=== PATIENT | female | born 1955 | race Caucasian/White ===

== ENCOUNTER 2020-03-29 14:20 | Inpatient (IN) | payer MEDICARE, BC, SELFPAY ==
[2020-03-29 14:59] VITALS: PULSE 64; RESP 18; O2SAT 94; BMI 25.2
--- NOTE | 2020-03-29 15:19 | HP.PCM_ITS ---
Problem List (1) Debility Status: Acute (2) Fall Status: Acute (3) Closed left hip fracture Status: Acute (4) Pelvic fracture Status: Acute (5) Ventral hernia Status: Chronic (6) Abdominal aortic aneurysm (AAA) 3.0 cm to 5.0 cm in diameter in female Status: Chronic (7) Hypertension Status: Chronic (8) Depression Status: Chronic (9) Anxiety Status: Chronic (10) Schizoaffective disorder Status: Chronic (11) Cellulitis of left lower extremity Status: Acute History of Present Illness Date of Admission: 03/29/20 Chief Complaint: Here for rehabilitation, strengthening, prior to discharge home alone. 03/24/20 The patient is a 64 year old Female with below past medical history admitted to [facility] with left hip fracture. Fell 1 week prior, very little pain, kept walking with rollator. Pain increased, unable to walk. Diagnosed with left hip fracture, pelvic fracture. Pain control, Toe touch weight bearing left lower extremity. Fractures managed conservatively, no surgical intervention. 03/29/20 Admit to TCU with debility, here for rehabilitation, strengthening, prior to discharge home alone. Past Medical History Past Medical History (Chronic Problems): Chronic Problems Ventral hernia (Chronic) Abdominal aortic aneurysm (AAA) 3.0 cm to 5.0 cm in diameter in female (Chronic) Hypertension (Chronic) Depression (Chronic) Anxiety (Chronic) Schizoaffective disorder (Chronic) Home Medications: Ambulatory Orders Medication Instructions Recorded Amlodipine [Norvasc] 5 mg PO DAILY 03/29/20 Baclofen 10 mg PO BID 03/29/20 Benztropine [Cogentin] 1 mg PO BID 03/29/20 Docusate Sodium [Colace] 100 mg PO BID 03/29/20 Enoxaparin [Lovenox] 40 mg SC DAILY@0600 03/29/20 Folic Acid 1 mg PO DAILY 03/29/20 Furosemide [Lasix] 20 mg PO QHS 03/29/20 Furosemide [Lasix] 40 mg PO DAILY@0600 03/29/20 Gabapentin [Neurontin] 100 mg PO TID 03/29/20 Lisinopril 20 mg PO DAILY 03/29/20 Loxapine Succinate [Loxapine] 50 mg PO BID 03/29/20 Oxycodone HCl/Acetaminophen 1 ea PO Q6H PRN PRN 03/29/20 [Oxycodone-Acetaminophen 5-325] Quetiapine Fumarate 200 mg PO QHS 03/29/20 Venlafaxine HCl [Venlafaxine HCl 150 mg PO DAILY 03/29/20 ER] Surgical History: cholecystectomy, herniorrhaphy, total knee arthroplasty - Left. Psychiatric History: Anxiety, Depression, Schizophrenia PUBLIC AFFAIRS MANAGER History: No pertinent PUBLIC AFFAIRS MANAGER history Lives: With Family - Sister Sachi. Smoking Status: Light Smoker (<10/day) Tobacco Use: Cigarettes Alcohol: Occasional Drugs: None - *Family History Maternal History Items: No pertinent history Paternal History Items: No pertinent history Review of Systems Constitutional: Denies: Chills, Fever, Weight Change HEENT: Denies: Head Aches, Sinus Congestion, Sinus Drainage Cardiovascular: Denies: Chest Pain, Palpitations Respiratory: Denies: Cough, Shortness of breath at rest, Sputum production Gastrointestinal: Denies: Abdominal Pain, Nausea, Vomiting Genitourinary: Denies: Dysuria Musculoskeletal: Denies: Joint Pain, Joint Tenderness Skin: Denies: Rash, Wounds Neurological: Denies: Numbness, Tingling, Focal weakness Psychiatric: Denies: Anxiety, Depression, Homicidal Ideations, Suicidal Ideations Hematologic/ Lymphatic: Denies: Easy Bruising, Easy Bleeding VTE Information - Inpt Only VTE Present on Admission: No VTE Mechan Device Prophylaxis: Knee High ZORAN Hose VTE Pharm Prophylaxis ordered?: Yes Patient Problems: Active and Suspected Problems Debility (Acute) Fall (Acute) Closed left hip fracture (Acute) Pelvic fracture (Acute) Cellulitis of left lower extremity (Acute) - Physical Exam Vitals/I&O's: Weight: 69.853 kg Body Mass Index (BMI) 25.2 General: Alert, Oriented x3, Cooperative HEENT: Atraumatic, PERRLA, EOMI, Normocephalic Neck: Supple, No JVD, Negative Carotid Bruits Lungs: Clear to auscultation, Normal air movement Cardiovascular: Regular rate, No murmurs Abdomen: Bowel Sounds Present, Soft, Non Tender Extremities: No edema, Capillary Refill Less than 3 Seconds Skin: No rashes, No breakdown Musculoskeletal: No Tenderness to Palpation of Joints or Extremities Neurological: Cranial nerves II-XII grossly intact Psych/Mental Status: Normal Affect, Appropriate Assessment/Plan All Active Problems Debility (Acute) Fall (Acute) Closed left hip fracture (Acute) Pelvic fracture (Acute) Cellulitis of left lower extremity (Acute) 64 year old female with below past medical history hospitalized for left hip fracture, pelvic fracture, managed conservatively, no surgical intervention, admitted to TCU with debility, here for rehabilitation, strengthening, prior to discharge home alone. * Debility - PT/OT. * Pain - Tylenol 1000MG Q6H PRN pain (1-5), Oxycodone 5MG Q6H PRN pain (6-10). * Bowel - Miralax 17GM daily, Senna/colace 2 tablets BID, MOM 30ML daily PRN, Dulcolax 10MG VT daily PRN. * Adult immunization - Administer Prevnar 13, Pneumovax 23, Fluzone as appropriate. * DVT prophylaxis - Lovenox 40MG SC daily. * Hypertension - Lisinopril 20MG daily, Amlodipine 5MG daily. * Muscle spasm - Baclofen 10MG TID. * Extrapyramidal symptom prophylaxis - Benztropine 1MG BID. * Folate deficiency - Folic Acid 1MG daily, * Edema - Lasix 40MG QAM, 20MG QPM. * Neuropathy - Gabapentin 100MG TID. * Schizoaffective disorder - Seroquel 200MG QHS, stable chronic termite exterminator helper use, GDR not recommended. * Depression - Venlafaxine 150MG daily.
[2020-03-29 15:30] VITALS: BP 133/85; PULSE 64; RESP 18; TEMP 36.4; O2SAT 94
[2020-03-29 16:00] VITALS: BP 133/85; PULSE 64; RESP 16; TEMP 36.4; O2SAT 94
--- NOTE | 2020-03-29 16:57 | NURSING ---
Addendum entered by Nupur Bacon 03/29/20 18:32: dr enriquez updated, no new orders at this time continue all meds as ordered Original Note: spoke with pt Sachi SALINAS regarding loxapine. Stated that she has not been taking it for 2 months d/t short supply. pt sees a phsych [facility] and she is aware of the shortage.
[2020-03-29] MEDS: oxyCODONE 5 MG Tablet PO (17:03)
[2020-03-29] MEDS: Benztropine 2 MG Tablet 1 MG PO (17:04)
[2020-03-29] MEDS: Docusate Sodium 100 MG Capsule PO (17:09)
[2020-03-29] MEDS: QUEtiapine 100 MG Tablet 200 MG PO (22:13)
[2020-03-29] MEDS: Gabapentin 100 MG Capsule PO (22:13)
[2020-03-29] MEDS: Acetaminophen 500 MG Tablet 1000 MG PO (22:15)
[2020-03-30] MEDS: oxyCODONE 5 MG Tablet PO ×3 (03:50→17:11)
[2020-03-30 05:00] VITALS: BP 136/93; PULSE 76; RESP 16; TEMP 36.6; O2SAT 94
[2020-03-30] MEDS: Venlafaxine XR 150 MG Capsule PO (06:15)
[2020-03-30] MEDS: amLODIPine 5 MG Tablet PO (06:15)
[2020-03-30] MEDS: Furosemide 40 MG Tablet PO (06:15)
[2020-03-30] MEDS: Gabapentin 100 MG Capsule PO ×3 (06:15→21:34)
[2020-03-30] MEDS: Acetaminophen 500 MG Tablet 1000 MG PO ×2 (06:16→16:17)
[2020-03-30] MEDS: Lisinopril 20 MG Tablet PO (06:16)
[2020-03-30] MEDS: Enoxaparin 40 MG/0.4 ML Syringe SC (06:17)
[2020-03-30] MEDS: Benztropine 2 MG Tablet 1 MG PO ×2 (06:20→18:06)
[2020-03-30 06:59] LABS: Absolute Lymphocyte Count 1.52 X10^3/uL (0.83-4.51); Absolute Neutrophil Count 3.4 X10^3/uL (2.0-7.7); Basophil# 0.03 X10^3/uL; Basophil% 0.6 % (0-1); Eosinophil# 0.01 X10^3/uL; Eosinophils% 0.2 % (0-5); Hematocrit 39.3 % (37-47); Hemoglobin 12.8 g/dL (12.0-15.0); Lymphocyte # 1.52 X10^3/ul (4.0); Lymphocyte % 27.9 % (19-41); Mean Corp Hgb Conc 32.6 g/dL (32-36); Mean Corpuscular Hgb 29.4 pg (27.0-32.0); Mean Corpuscular Volume 90.3 fL (81-99); Mean Platelet Vol. 9.8 fl (6.2-12.0); Monocyte# 0.44 X10^3/uL; Monocyte% 8.1 % (0-10); NRBC Flagged by Analyzer 0 % (0-5); Neutrophil # 3.43 X10^3/uL (2.7-7.7); Platelet Count 300 K/mm3 (150-450); RBC Distribution Width CV 12.8 % (11.6-14.6); RBC Distribution Width SD 42.4 fl (35.1-43.9); Red Blood Count 4.35 M/mm3 (4.2-5.4); White Blood Count 5.4 K/mm3 (4.4-11.0)
[2020-03-30 07:23] LABS: Anion Gap 4 (5-15); BUN 15 mg/dL (7-18); BUN/Creat Ratio 22.4 RATIO (10-20); Calcium,Total 8.8 mg/dL (8.5-10.1); Chloride 104 mmol/L (98-107); Creatinine, Serum 0.67 mg/dL (0.55-1.02); EST Glomerular Filtration Rate 94 mL/min (>60); Est Glom Filt Rate - Afr Amer 113 mL/min (>60); Estimated Creatinine Clearance 75.33 ml/min; Glucose 96 mg/dL (74-106); Potassium 3.6 mmol/L (3.5-5.1); Sodium Level 136 mmol/L (136-145)
[2020-03-30] MEDS: Folic Acid 1 MG Tablet PO (07:54)
[2020-03-30] MEDS: Tuberculin,Purif.prot.deriv. 50 TU/ML Vial 5 ML ID (10:36)
[2020-03-30] MEDS: Furosemide 20 MG Tablet PO (13:18)
[2020-03-30 13:40] VITALS: BP 133/77; PULSE 108; RESP 18; TEMP 36.6; O2SAT 94
--- NOTE | 2020-03-30 15:39 | NURSING ---
Pt c/o of baclofen making her drowsy and tired. Dr. Rinaldi made aware D/C'd the baclofen.
[2020-03-30 20:01] VITALS: PULSE 75; RESP 16; O2SAT 94
[2020-03-30] MEDS: QUEtiapine 100 MG Tablet 200 MG PO (21:34)
[2020-03-31 05:00] VITALS: BP 130/71; PULSE 76; RESP 16; TEMP 36.5; O2SAT 94
[2020-03-31] MEDS: Venlafaxine XR 150 MG Capsule PO (06:55)
[2020-03-31] MEDS: Enoxaparin 40 MG/0.4 ML Syringe SC (06:55)
[2020-03-31] MEDS: Lisinopril 20 MG Tablet PO (06:55)
[2020-03-31] MEDS: amLODIPine 5 MG Tablet PO (06:55)
[2020-03-31] MEDS: Gabapentin 100 MG Capsule PO ×3 (06:55→20:49)
[2020-03-31] MEDS: Furosemide 40 MG Tablet PO (06:55)
[2020-03-31] MEDS: Benztropine 2 MG Tablet 1 MG PO ×2 (06:56→17:07)
[2020-03-31] MEDS: oxyCODONE 5 MG Tablet PO ×3 (06:57→20:52)
[2020-03-31] MEDS: Folic Acid 1 MG Tablet PO (08:03)
[2020-03-31 09:21] VITALS: PULSE 104; RESP 16; O2SAT 92
[2020-03-31] MEDS: Furosemide 20 MG Tablet PO (13:48)
[2020-03-31 14:17] VITALS: BP 137/75; PULSE 90; RESP 16; TEMP 36.7; O2SAT 94
[2020-03-31] MEDS: QUEtiapine 100 MG Tablet 200 MG PO (20:50)
[2020-04-01 05:00] VITALS: BP 131/64; PULSE 88; RESP 16; TEMP 36.7; O2SAT 92
[2020-04-01] MEDS: oxyCODONE 5 MG Tablet PO ×3 (05:17→21:27)
[2020-04-01] MEDS: Venlafaxine XR 150 MG Capsule PO (05:25)
[2020-04-01] MEDS: Furosemide 40 MG Tablet PO (05:26)
[2020-04-01] MEDS: Gabapentin 100 MG Capsule PO ×3 (05:27→21:28)
[2020-04-01] MEDS: amLODIPine 5 MG Tablet PO (05:27)
[2020-04-01] MEDS: Lisinopril 20 MG Tablet PO (05:27)
[2020-04-01] MEDS: Enoxaparin 40 MG/0.4 ML Syringe SC (05:30)
[2020-04-01] MEDS: Benztropine 2 MG Tablet 1 MG PO ×2 (05:31→17:22)
[2020-04-01] MEDS: Folic Acid 1 MG Tablet PO (08:16)
[2020-04-01] MEDS: Acetaminophen 500 MG Tablet 1000 MG PO (08:17)
--- NOTE | 2020-04-01 12:01 | CASEMGMT ---
Social Work Discussed patient's code status. Pt confirms full code. MOLST form reviewed, communication given to , placed in chart. Cecy Roper, ROLL FORGER MANAGER STRATEGIC MARKETING
[2020-04-01] MEDS: Furosemide 20 MG Tablet PO (13:03)
[2020-04-01 14:25] VITALS: BP 120/72; PULSE 81; RESP 17; TEMP 36.4; O2SAT 94
[2020-04-01] MEDS: Senna/Docusate Sodium 1 Tablet 2 TABLET PO (17:19)
[2020-04-01] MEDS: QUEtiapine 100 MG Tablet 200 MG PO (21:29)
[2020-04-02] MEDS: Acetaminophen 500 MG Tablet 1000 MG PO ×2 (00:07→07:47)
[2020-04-02] MEDS: oxyCODONE 5 MG Tablet PO ×3 (04:37→21:19)
[2020-04-02] MEDS: Benztropine 2 MG Tablet 1 MG PO ×2 (04:38→17:21)
[2020-04-02] MEDS: amLODIPine 5 MG Tablet PO (04:38)
[2020-04-02] MEDS: Venlafaxine XR 150 MG Capsule PO (04:38)
[2020-04-02] MEDS: Enoxaparin 40 MG/0.4 ML Syringe SC (04:38)
[2020-04-02] MEDS: Lisinopril 20 MG Tablet PO (04:38)
[2020-04-02] MEDS: Furosemide 40 MG Tablet PO (04:38)
[2020-04-02] MEDS: Gabapentin 100 MG Capsule PO ×3 (04:39→21:11)
[2020-04-02 04:54] VITALS: BP 133/54; PULSE 78; RESP 18; TEMP 36.6; O2SAT 93
[2020-04-02] MEDS: Folic Acid 1 MG Tablet PO (07:45)
[2020-04-02 09:50] VITALS: PULSE 90; RESP 18; O2SAT 94
--- NOTE | 2020-04-02 11:34 | NURSING ---
PT BOTTOM RED. REPORTED TO RN AND MIKE ORDERED.
--- NOTE | 2020-04-02 12:50 | PCM.PN.RX ---
<Christophe Foxivon Kerns - Last Filed: 04/02/20 12:50> Progress Note - Pharmacy Subjective: TCU Admission Objective: Allergies azithromycin Allergy (Verified 03/29/20 15:28) PT UNSURE OF REACTION Sulfa (Sulfonamide Antibiotics) Allergy (Verified 03/29/20 15:28) Hives olanzapine [From Zyprexa] Adverse Reaction (Verified 03/29/20 17:03) Shortness of breath Current Medications Generic Name Dose Route Start Last Admin Trade Name Freq PRN Reason Stop Dose Admin Acetaminophen 1,000 mg 03/29/20 18:57 04/02/20 07:47 Acetaminophen 500 Mg Tablet PO 1,000 mg Q6H PRN Administration Pain Score 1-10 Amlodipine Besylate 5 mg 03/30/20 06:00 04/02/20 04:38 Amlodipine 5 Mg Tablet PO 5 mg DAILY FRANKO Administration Benztropine Mesylate 1 mg 03/29/20 18:00 04/02/20 04:38 Benztropine 2 Mg Tablet PO 1 mg BID FRANKO Administration Bisacodyl 10 mg 03/29/20 18:58 Bisacodyl 10 Mg Suppository RECTAL DAILY PRN Constipation Calamine/Phenol 1 applic 04/02/20 18:00 Menthol/Lanolin/Calamine/Znox 113 Gm Tube TOPICAL BID [facility] Protocol Enoxaparin Sodium 40 mg 03/30/20 06:00 04/02/20 04:38 Enoxaparin 40 Mg/0.4 Ml Syringe SC 40 mg DAILY@0600 FRANKO Administration Folic Acid 1 mg 03/30/20 08:00 04/02/20 07:45 Folic Acid 1 Mg Tablet PO 1 mg DAILYCM FRANKO Administration Furosemide 40 mg 03/30/20 06:00 04/02/20 04:38 Furosemide 40 Mg Tablet PO 40 mg DAILY@0600 FRANKO Administration Furosemide 20 mg 03/30/20 13:00 04/01/20 13:03 Furosemide 20 Mg Tablet PO 20 mg 1300 FRANKO Administration Gabapentin 100 mg 03/29/20 22:00 04/02/20 04:39 Gabapentin 100 Mg Capsule PO 100 mg TID FRANKO Administration Lisinopril 20 mg 03/30/20 06:00 04/02/20 04:38 Lisinopril 20 Mg Tablet PO 20 mg DAILY FRANKO Administration Magnesium Hydroxide 30 ml 03/29/20 18:58 Magnesium Hydroxide 30 Ml Udc PO DAILY PRN Constipation Oxycodone HCl 5 mg 03/29/20 16:12 04/02/20 04:37 Oxycodone 5 Mg Tablet PO 5 mg Q6H PRN PRN Administration Pain Score 6-10 Polyethylene Glycol 17 gm 03/30/20 06:00 04/02/20 04:39 Polyethylene Glycol 3350 17 Gm Packet PO Not Given DAILY FRANKO Quetiapine Fumarate 200 mg 03/29/20 22:00 04/01/20 21:29 Quetiapine 100 Mg Tablet PO 200 mg QHS FRANKO Administration Senna/Docusate Sodium 2 tablet 03/30/20 06:00 04/02/20 04:39 Senna/Docusate Sodium 1 Tablet PO Not Given BID [facility] Tuberculin PPD 5 tu 04/06/20 10:00 Tuberculin,Purif.Prot.Deriv. 50 Tu/Ml Vial ID 04/06/20 10:01 X1 ONE Venlafaxine HCl 150 mg 03/30/20 06:00 04/02/20 04:38 Venlafaxine Xr 150 Mg Capsule PO 150 mg DAILY FRANKO Administration Problem List Debility (Acute) Fall (Acute) Closed left hip fracture (Acute) Pelvic fracture (Acute) Ventral hernia (Chronic) Abdominal aortic aneurysm (AAA) 3.0 cm to 5.0 cm in diameter in female (Chronic) Hypertension (Chronic) Depression (Chronic) Anxiety (Chronic) Schizoaffective disorder (Chronic) Cellulitis of left lower extremity (Acute) Vital Signs Temp Pulse Resp BP Pulse Ox 97.8 F 78 18 133/54 H 93 04/02/20 04:54 04/02/20 04:54 04/02/20 04:54 04/02/20 04:54 04/02/20 04:54 Oxygen Delivery Method Room Air Weight: 64.949 kg Body Mass Index (BMI) 25.2 Sodium 136 mmol/L (136-145) 03/30/20 06:05 Potassium 3.6 mmol/L (3.5-5.1) 03/30/20 06:05 Chloride 104 mmol/L (98-107) 03/30/20 06:05 Carbon Dioxide 28.0 mmol/L (21.0-32.0) 03/30/20 06:05 Anion Gap 4 (5-15) L 03/30/20 06:05 BUN 15 mg/dL (7-18) 03/30/20 06:05 Creatinine 0.67 mg/dL (0.55-1.02) 03/30/20 06:05 Est GFR (MDRD) Af Amer 113 mL/min (>60) 03/30/20 06:05 Est GFR (MDRD) Non-Af 94 mL/min (>60) 03/30/20 06:05 BUN/Creatinine Ratio 22.4 RATIO (10-20) H 03/30/20 06:05 Glucose 96 mg/dL (74-106) 03/30/20 06:05 Assessment/Plan: 1) Pain APAP for pain 1-10, oxycodone for pain 6-10, gabapentin. Continue to monitor prn medication use, daily pain scores. 2) HTN/Edema Lisinopril, amlodipine, furosemide. Continue to monitor BP/HR, renal function, electrolytes. 3) Nutrition Folic Acid. Continue to monitor clinically. 4) DVT PPx Enoxaparin. Continue to monitor renal function, s/s bleeding/clot. Psychotropic Medications: 5) Depression Venlafaxine XR. Continue to monitor s/s depression. 6) Schizoaffective Disorder Quetiapine, benztropine. Stable chronic senior living use, GDR not recommended. Unnecessary Medications: None Bowel Regimen: 7) Senna/s, PEG, MgOH, prn bisacodyl. Continue to monitor prn medication use, for constipation/diarrhea. Date of Note:: 04/02/20 - Provider Comments Provider responsibility: Provider responsible to enter orders to implement recommendations <Yao Rinaldi Chi - Last Filed: 04/02/20 14:21> Progress Note - Pharmacy Subjective: [] Objective: Allergies azithromycin Allergy (Verified 03/29/20 15:28) PT UNSURE OF REACTION Sulfa (Sulfonamide Antibiotics) Allergy (Verified 03/29/20 15:28) Hives olanzapine [From Zyprexa] Adverse Reaction (Verified 03/29/20 17:03) Shortness of breath Current Medications Generic Name Dose Route Start Last Admin Trade Name Freq PRN Reason Stop Dose Admin Acetaminophen 1,000 mg 03/29/20 18:57 04/02/20 07:47 Acetaminophen 500 Mg Tablet PO 1,000 mg Q6H PRN Administration Pain Score 1-10 Amlodipine Besylate 5 mg 03/30/20 06:00 04/02/20 04:38 Amlodipine 5 Mg Tablet PO 5 mg DAILY FRANKO Administration Benztropine Mesylate 1 mg 03/29/20 18:00 04/02/20 04:38 Benztropine 2 Mg Tablet PO 1 mg BID [facility] Administration Bisacodyl 10 mg 03/29/20 18:58 Bisacodyl 10 Mg Suppository RECTAL DAILY PRN Constipation Calamine/Phenol 1 applic 04/02/20 18:00 Menthol/Lanolin/Calamine/Znox 113 Gm Tube TOPICAL BID [facility] Protocol Enoxaparin Sodium 40 mg 03/30/20 06:00 04/02/20 04:38 Enoxaparin 40 Mg/0.4 Ml Syringe SC 40 mg DAILY@0600 [facility] Administration Folic Acid 1 mg 03/30/20 08:00 04/02/20 07:45 Folic Acid 1 Mg Tablet PO 1 mg DAILYCM [facility] Administration Furosemide 40 mg 03/30/20 06:00 04/02/20 04:38 Furosemide 40 Mg Tablet PO 40 mg DAILY@0600 [facility] Administration Furosemide 20 mg 03/30/20 13:00 04/02/20 13:05 Furosemide 20 Mg Tablet PO 20 mg 1300 [facility] Administration Gabapentin 100 mg 03/29/20 22:00 04/02/20 13:05 Gabapentin 100 Mg Capsule PO 100 mg TID [facility] Administration Lisinopril 20 mg 03/30/20 06:00 04/02/20 04:38 Lisinopril 20 Mg Tablet PO 20 mg DAILY [facility] Administration Magnesium Hydroxide 30 ml 03/29/20 18:58 Magnesium Hydroxide 30 Ml Udc PO DAILY PRN Constipation Oxycodone HCl 5 mg 03/29/20 16:12 04/02/20 13:06 Oxycodone 5 Mg Tablet PO 5 mg Q6H PRN PRN Administration Pain Score 6-10 Polyethylene Glycol 17 gm 03/30/20 06:00 04/02/20 04:39 Polyethylene Glycol 3350 17 Gm Packet PO Not Given DAILY [facility] Quetiapine Fumarate 200 mg 03/29/20 22:00 04/01/20 21:29 Quetiapine 100 Mg Tablet PO 200 mg QHS [facility] Administration Senna/Docusate Sodium 2 tablet 03/30/20 06:00 04/02/20 04:39 Senna/Docusate Sodium 1 Tablet PO Not Given BID [facility] Tuberculin PPD 5 tu 04/06/20 10:00 Tuberculin,Purif.Prot.Deriv. 50 Tu/Ml Vial ID 04/06/20 10:01 X1 ONE Venlafaxine HCl 150 mg 03/30/20 06:00 04/02/20 04:38 Venlafaxine Xr 150 Mg Capsule PO 150 mg DAILY FRANKO Administration Problem List Debility (Acute) Fall (Acute) Closed left hip fracture (Acute) Pelvic fracture (Acute) Ventral hernia (Chronic) Abdominal aortic aneurysm (AAA) 3.0 cm to 5.0 cm in diameter in female (Chronic) Hypertension (Chronic) Depression (Chronic) Anxiety (Chronic) Schizoaffective disorder (Chronic) Cellulitis of left lower extremity (Acute) Vital Signs Temp Pulse Resp BP Pulse Ox 97.8 F 78 18 133/54 H 93 04/02/20 04:54 04/02/20 04:54 04/02/20 04:54 04/02/20 04:54 04/02/20 04:54 Oxygen Delivery Method Room Air Weight: 64.949 kg Body Mass Index (BMI) 25.2 Sodium 136 mmol/L (136-145) 03/30/20 06:05 Potassium 3.6 mmol/L (3.5-5.1) 03/30/20 06:05 Chloride 104 mmol/L (98-107) 03/30/20 06:05 Carbon Dioxide 28.0 mmol/L (21.0-32.0) 03/30/20 06:05 Anion Gap 4 (5-15) L 03/30/20 06:05 BUN 15 mg/dL (7-18) 03/30/20 06:05 Creatinine 0.67 mg/dL (0.55-1.02) 03/30/20 06:05 Est GFR (MDRD) Af Amer 113 mL/min (>60) 03/30/20 06:05 Est GFR (MDRD) Non-Af 94 mL/min (>60) 03/30/20 06:05 BUN/Creatinine Ratio 22.4 RATIO (10-20) H 03/30/20 06:05 Glucose 96 mg/dL (74-106) 03/30/20 06:05 Assessment/Plan: Psychotropic Medications: Unnecessary Medications: Bowel Regimen: - Provider Comments Provider responsibility: Provider responsible to enter orders to implement recommendations Provider Comments to Recommendations by Pharmacy: Agree
[2020-04-02] MEDS: Furosemide 20 MG Tablet PO (13:05)
[2020-04-02 14:47] VITALS: BP 131/73; PULSE 92; RESP 16; TEMP 36; O2SAT 94
[2020-04-02] MEDS: Menthol/Lanolin/Calamine/Znox 113 GM Tube 1 APPLIC TOPICAL (17:13)
[2020-04-02] MEDS: QUEtiapine 100 MG Tablet 200 MG PO (21:12)
[2020-04-03] MEDS: Menthol/Lanolin/Calamine/Znox 113 GM Tube 1 APPLIC TOPICAL ×2 (06:54→17:33)
[2020-04-03] MEDS: Benztropine 2 MG Tablet 1 MG PO ×2 (06:55→17:34)
[2020-04-03] MEDS: Venlafaxine XR 150 MG Capsule PO (06:56)
[2020-04-03] MEDS: Enoxaparin 40 MG/0.4 ML Syringe SC (06:57)
[2020-04-03] MEDS: Furosemide 40 MG Tablet PO (06:57)
[2020-04-03] MEDS: amLODIPine 5 MG Tablet PO (06:58)
[2020-04-03] MEDS: Gabapentin 100 MG Capsule PO ×3 (06:58→23:12)
[2020-04-03] MEDS: Lisinopril 20 MG Tablet PO (06:58)
[2020-04-03] MEDS: Folic Acid 1 MG Tablet PO (07:01)
[2020-04-03 07:10] VITALS: BP 135/73; PULSE 90; RESP 18; TEMP 36.6; O2SAT 95
[2020-04-03] MEDS: oxyCODONE 5 MG Tablet PO (09:00)
--- NOTE | 2020-04-03 12:41 | CASEMGMT ---
Social Work IDT met with patient and sister via conference call for care plan meeting. Discussed patient's progress in therapy. Pt is mod for bed mobility, min for tx,. Pt is TTWB on LLE and needs cues maintaining. Pt is using 2# wts on RLE. Pt is min for UE ADLS, max for LE ADLs, mod for toilet tx, max for toileting tasks. Pt having issues with balance. Pt is on a regular diet, intake variable, denies wanting any supplements. Pt is out of isolation 04/12, and has new cath. Explained Medicare benefit. Pt does not have secondary insurance on file and explained privately pay for copays. Sister stated she does have [place] as secondary insurance because they cannot pay privately. Sister to provide SW with insurance card to put on file and ensure is active. Sister did stated pt needs to return to [facility] to return home as she cannot take care of her physically. Inquired about getting a ramp built as pt has 7 steps to enter. Sister stated her dtr lives with them and is handicap as well so they are working on getting a ramp. SW offered resources if needed. Will continue to follow. Cecy Roper, CONSTANZA HVAC SPECIALIST
[2020-04-03] MEDS: Furosemide 20 MG Tablet PO (14:13)
[2020-04-03 14:21] VITALS: BP 137/78; PULSE 73; RESP 16; TEMP 36.3; O2SAT 93
[2020-04-03] MEDS: Senna/Docusate Sodium 1 Tablet 2 TABLET PO (17:33)
[2020-04-03] MEDS: oxyCODONE 5 MG Tablet 10 MG PO (17:36)
[2020-04-03] MEDS: QUEtiapine 100 MG Tablet 200 MG PO (23:12)
[2020-04-03 23:29] VITALS: PULSE 84; RESP 18; O2SAT 95
[2020-04-04 05:00] VITALS: BP 136/49; PULSE 104; RESP 16; TEMP 37.7; O2SAT 94
[2020-04-04] MEDS: Menthol/Lanolin/Calamine/Znox 113 GM Tube 1 APPLIC TOPICAL ×2 (05:56→17:07)
[2020-04-04] MEDS: Venlafaxine XR 150 MG Capsule PO (05:58)
[2020-04-04] MEDS: Furosemide 40 MG Tablet PO (05:59)
[2020-04-04] MEDS: Benztropine 2 MG Tablet 1 MG PO ×2 (05:59→17:09)
[2020-04-04] MEDS: Polyethylene Glycol 3350 17 GM PACKET PO (06:00)
[2020-04-04] MEDS: Enoxaparin 40 MG/0.4 ML Syringe SC (06:00)
[2020-04-04] MEDS: amLODIPine 5 MG Tablet PO (06:01)
[2020-04-04] MEDS: Senna/Docusate Sodium 1 Tablet 2 TABLET PO ×2 (06:01→17:09)
[2020-04-04] MEDS: Lisinopril 20 MG Tablet PO (06:01)
[2020-04-04] MEDS: Gabapentin 100 MG Capsule PO ×3 (06:01→21:39)
[2020-04-04] MEDS: Folic Acid 1 MG Tablet PO (08:00)
[2020-04-04] MEDS: oxyCODONE 5 MG Tablet 10 MG PO ×2 (08:02→21:37)
[2020-04-04 10:00] VITALS: PULSE 94; RESP 18; O2SAT 94
--- NOTE | 2020-04-04 11:37 | MDS.RN ---
Pain interview for [facility] 04/05/20 completed.
[2020-04-04] MEDS: Furosemide 20 MG Tablet PO (14:17)
[2020-04-04 15:17] VITALS: BP 148/66; PULSE 80; RESP 16; TEMP 36.8; O2SAT 94
--- NOTE | 2020-04-04 17:01 | NURSING ---
PT STATED SHE UPDATES FAMILY
[2020-04-04] MEDS: QUEtiapine 100 MG Tablet 200 MG PO (21:38)
[2020-04-05] MEDS: Enoxaparin 40 MG/0.4 ML Syringe SC (04:14)
[2020-04-05] MEDS: Acetaminophen 500 MG Tablet 1000 MG PO (04:14)
[2020-04-05] MEDS: Venlafaxine XR 150 MG Capsule PO (04:15)
[2020-04-05] MEDS: Benztropine 2 MG Tablet 1 MG PO ×2 (04:15→17:10)
[2020-04-05] MEDS: amLODIPine 5 MG Tablet PO (04:15)
[2020-04-05] MEDS: Senna/Docusate Sodium 1 Tablet 2 TABLET PO ×2 (04:15→17:10)
[2020-04-05] MEDS: Furosemide 40 MG Tablet PO (04:15)
[2020-04-05] MEDS: Polyethylene Glycol 3350 17 GM PACKET PO (04:16)
[2020-04-05] MEDS: Lisinopril 20 MG Tablet PO (04:16)
[2020-04-05] MEDS: Gabapentin 100 MG Capsule PO ×3 (04:16→20:51)
[2020-04-05] MEDS: Menthol/Lanolin/Calamine/Znox 113 GM Tube 1 APPLIC TOPICAL ×2 (04:18→17:09)
[2020-04-05 04:21] VITALS: BP 119/74; PULSE 98; RESP 18; TEMP 38.4; O2SAT 94
[2020-04-05 07:43] VITALS: TEMP 37.3
[2020-04-05] MEDS: Folic Acid 1 MG Tablet PO (08:31)
--- NOTE | 2020-04-05 10:20 | PCM.PN.BLA ---
Progress Note By nursing to see this patient for a fever of 101.2 ?F at 421 this AM. She is a 64 YOF admitted with hip and pelvic fractures on 03/29/2020. She had no surgery. Temp this a.m. is 99.2 but she received Tylenol Vital signs are stable. She is 94% on room air. She tells me she has a cough and she thinks it is productive but she swallows. She is a smoker but, she is down to 3 cigarettes a day and she hasn't smoked since being admitted to the hospital. She has used an inhaler in the past for wheezing and it helped. She denies dyspnea at rest. She denies dysuria, lightheadedness, chest pain, abdominal pain, nausea/vomiting, diarrhea, loss of taste or loss of smell. She denies sore throat, rhinitis, nasal congestion and headache. Rapid antigen for Covid on 04/01/2020 was negative. Alert and appropriate. Sitting in the recliner at the bedside and is in no apparent distress. MM are dry Lungs - diminished. Coarse rhonchi and crackles in the L upper lung posteriorly that did not clear after coughing. R lung is CTA HRRR with an occasional ectopic, no gallop abd - soft, NT, ND, BS's present no peripheral edema, no calf tenderness Urine in the thomason bag is clear but appears mildly concentrated No erythema of the skin. Reportedly had cellulitis of the LLE at admission to TCU. She was not on an antibiotic at presentation to TCU. There is no documentation on physical exam of cellulitis. Impressions 1. New fever associated with cough. She also has a thomason catheter so can not r/o UTI at this time. Not sure why she has a Thomason.......will discuss with nursing. 2. Pelvic and L hip fractures due to a fall - no surgical intervention 3. tobacco dependence 4. schizoaffective disorder UA CBC with diff COVID RA BMP CXR now Results of above will determine plan for tx. will review the results when available STROKE Vital Signs/Narrative: Vital Signs Temp 04/05/20 07:43 99.2 F H Inpatient E&M: [id number] Subs Hosp L2
--- NOTE | 2020-04-05 10:31 | RAD_ITS ---
STUDY: X-RAY CHEST REASON FOR EXAM: Female, 64 years old. FEVER -- DENIES ANY SOB OR COUGH TECHNIQUE: Single AP portable view of the chest. COMPARISON: None. FINDINGS: The lungs are clear and expanded. There is no demonstrated pleural abnormality. Normal size heart. Normal mediastinum and basil. Normal visualized pulmonary arteries. Normal visualized aortic arch and descending thoracic aorta. Normal visualized thoracic spine. Normal visualized ribs, clavicles, and shoulders. There is no demonstrated abnormality of the visualized soft tissue structures of the upper abdomen. RAD/Chest 1 View (Portable) IMPRESSION: Normal x-ray examination of the chest. Electronically Signed: Bobby Michel DO at 11:13 EST Tel , Service support ,
[2020-04-05 10:57] LABS: Absolute Lymphocyte Count 1.26 X10^3/uL (0.83-4.51); Absolute Neutrophil Count 3.1 X10^3/uL (2.0-7.7); Basophil# 0.01 X10^3/uL; Basophil% 0.2 % (0-1); Hematocrit 39.2 % (37-47); Hemoglobin 13.1 g/dL (12.0-15.0); Lymphocyte # 1.26 X10^3/ul (4.0); Lymphocyte % 25.5 % (19-41); Mean Corp Hgb Conc 33.4 g/dL (32-36); Mean Corpuscular Hgb 29.2 pg (27.0-32.0); Mean Corpuscular Volume 87.5 fL (81-99); Mean Platelet Vol. 9.8 fl (6.2-12.0); Monocyte% 12.1 % (0-10); NRBC Flagged by Analyzer 0 % (0-5); Neutrophil # 3.05 X10^3/uL (2.7-7.7); Neutrophil % 61.8 % (47-70); Platelet Count 340 K/mm3 (150-450); RBC Distribution Width CV 12.3 % (11.6-14.6); RBC Distribution Width SD 39.7 fl (35.1-43.9); Red Blood Count 4.48 M/mm3 (4.2-5.4); White Blood Count 4.9 K/mm3 (4.4-11.0)
[2020-04-05 11:06] LABS: Anion Gap 8 (5-15); BUN 18 mg/dL (7-18); BUN/Creat Ratio 22.4 RATIO (10-20); Calcium,Total 8.5 mg/dL (8.5-10.1); Chloride 92 mmol/L (98-107); EST Glomerular Filtration Rate 76 mL/min (>60); Est Glom Filt Rate - Afr Amer 92 mL/min (>60); Estimated Creatinine Clearance 63.09 ml/min; Glucose 94 mg/dL (74-106); Potassium 3.9 mmol/L (3.5-5.1); Sodium Level 124 mmol/L (136-145)
[2020-04-05] MEDS: oxyCODONE 5 MG Tablet 10 MG PO ×2 (14:40→20:54)
[2020-04-05] MEDS: 0.9% Normal Saline 1,000 ML 100 ML IV (14:54)
[2020-04-05 14:56] VITALS: BP 107/70; PULSE 75; RESP 18; TEMP 36.4; O2SAT 96
--- NOTE | 2020-04-05 16:22 | NURSING ---
Addendum entered by Jumana Whittington 04/05/20 17:08: lab stated they had received lab specimen and will process it now Original Note: Lab called regarding UA results. They will look into it and call us back if they do not have the specimen. Also CPS called to collect Covid swab.
[2020-04-05 16:24] LABS: Mucous, Urine 0 SEEN /hpf (<or=2+); Squamous Epithelial Cells - UA 0 SEEN /hpf (5-10)
[2020-04-05 16:44] LABS: Color, Urine Yellow (Yellow); Glucose, Dipstick Normal (Normal); Ketone-Dipstick Negative (Negative); Leukocyte Esterase-Dipstick 25 /ul (Negative); Nitrite-Dipstick Negative (Negative); Occult Blood-Urine 250 /ul (Negative); Protein-Dipstick 100 mg/dl (Negative); Urine Bilirubin Dipstick Negative (Negative); Urine Clarity Sl. Cloudy (Clear); Urine Urobilinogen Normal (Normal)
[2020-04-05 16:48] LABS: Bacteria 4+ /hpf (None Seen); Red Blood Cells-Urine 25-50 SEEN /hpf (0-5); White Blood Cells 0-5 SEEN /hpf (0-5)
[2020-04-05] MEDS: Ceftriaxone 1 GM/50 ML BAG IV (20:43)
[2020-04-05] MEDS: QUEtiapine 100 MG Tablet 200 MG PO (20:50)
--- NOTE | 2020-04-05 21:00 | NURSING ---
Dr Mackenzie notified of UA results, new orders obtained, this nurse called lab and they have urine for culture to be done,
[2020-04-06] MEDS: 0.9% Normal Saline 1,000 ML 100 ML IV ×2 (01:25→11:30)
[2020-04-06 04:19] VITALS: BP 117/63; PULSE 82; RESP 18; TEMP 37; O2SAT 92
[2020-04-06] MEDS: Enoxaparin 40 MG/0.4 ML Syringe SC (04:22)
[2020-04-06] MEDS: Benztropine 2 MG Tablet 1 MG PO ×2 (04:23→17:46)
[2020-04-06] MEDS: Polyethylene Glycol 3350 17 GM PACKET PO (04:23)
[2020-04-06] MEDS: Senna/Docusate Sodium 1 Tablet 2 TABLET PO (04:23)
[2020-04-06] MEDS: Venlafaxine XR 150 MG Capsule PO (04:23)
[2020-04-06] MEDS: amLODIPine 5 MG Tablet PO (04:23)
[2020-04-06] MEDS: Gabapentin 100 MG Capsule PO ×3 (04:23→22:48)
[2020-04-06] MEDS: Lisinopril 20 MG Tablet PO (04:23)
[2020-04-06] MEDS: oxyCODONE 5 MG Tablet 10 MG PO ×3 (04:27→22:47)
[2020-04-06] MEDS: Menthol/Lanolin/Calamine/Znox 113 GM Tube 1 APPLIC TOPICAL ×2 (04:28→17:48)
[2020-04-06 06:20] LABS: Absolute Neutrophil Count 3.9 X10^3/uL (2.0-7.7); Basophil# 0.01 X10^3/uL; Basophil% 0.2 % (0-1); Hematocrit 35.8 % (37-47); Hemoglobin 12.2 g/dL (12.0-15.0); Lymphocyte % 25.5 % (19-41); Mean Corp Hgb Conc 34.1 g/dL (32-36); Monocyte# 0.45 X10^3/uL; Monocyte% 7.7 % (0-10); NRBC Flagged by Analyzer 0 % (0-5); Neutrophil # 3.89 X10^3/uL (2.7-7.7); Neutrophil % 66.1 % (47-70); Platelet Count 318 K/mm3 (150-450); RBC Distribution Width CV 12.1 % (11.6-14.6); RBC Distribution Width SD 39.1 fl (35.1-43.9); Red Blood Count 4.07 M/mm3 (4.2-5.4); White Blood Count 5.9 K/mm3 (4.4-11.0)
[2020-04-06 06:58] LABS: Anion Gap 8 (5-15); BUN 13 mg/dL (7-18); BUN/Creat Ratio 27.4 RATIO (10-20); Calcium,Total 8.2 mg/dL (8.5-10.1); Chloride 97 mmol/L (98-107); Creatinine, Serum 0.48 mg/dL (0.55-1.02); EST Glomerular Filtration Rate 139 mL/min (>60); Est Glom Filt Rate - Afr Amer 169 mL/min (>60); Estimated Creatinine Clearance 105.14 ml/min; Glucose 86 mg/dL (74-106); Potassium 3.7 mmol/L (3.5-5.1); Sodium Level 129 mmol/L (136-145)
[2020-04-06] MEDS: Folic Acid 1 MG Tablet PO (08:50)
[2020-04-06 09:55] VITALS: PULSE 78; RESP 18; O2SAT 95
[2020-04-06] MEDS: Tuberculin,Purif.prot.deriv. 50 TU/ML Vial 5 ML ID (11:32)
[2020-04-06 14:00] VITALS: BP 124/69; PULSE 84; RESP 18; TEMP 36.8; O2SAT 93
--- NOTE | 2020-04-06 15:45 | PCM.PN.BLA ---
Progress Note Afebrile VSS Maintaining appropriate oxygen saturation on RA Oral intake is poor [] Discussed with nursing - no problems that need addressed Medication list reviewed. Lasix was discontinued on 04/04/20. IV fluids discontinued yesterday Denies LUO, OB, CP, lightheadedness N/V Alert and appropriate Lungs - CTA HRRR abd - soft, NT no peripheral edema Impressions 1. hyponatremia - more likely than not due to IV volume depletion due to BID Lasix 2. dehydration 3. Closed hip fracture and pelvic fracture - non-surgical 4. schizoaffective disorder recheck lab in the AM DC IV fluids Continue therapy Why does she have a Jaimes? Inpatient E&M: [id number] Subs Hosp L1
[2020-04-06] MEDS: Ceftriaxone 1 GM/50 ML BAG IV (22:52)
[2020-04-06] MEDS: QUEtiapine 100 MG Tablet 200 MG PO (22:53)
[2020-04-06] MEDS: 0.9% Saline Lock 10 ML Syringe IV (23:33)
[2020-04-07 05:00] VITALS: BP 136/71; PULSE 77; RESP 16; TEMP 36.6; O2SAT 94
[2020-04-07] MEDS: Enoxaparin 40 MG/0.4 ML Syringe SC (05:07)
[2020-04-07] MEDS: Senna/Docusate Sodium 1 Tablet 2 TABLET PO (05:08)
[2020-04-07] MEDS: Venlafaxine XR 150 MG Capsule PO (05:08)
[2020-04-07] MEDS: Lisinopril 20 MG Tablet PO (05:08)
[2020-04-07] MEDS: Polyethylene Glycol 3350 17 GM PACKET PO (05:08)
[2020-04-07] MEDS: amLODIPine 5 MG Tablet PO (05:08)
[2020-04-07] MEDS: Benztropine 2 MG Tablet 1 MG PO ×2 (05:08→16:47)
[2020-04-07] MEDS: Menthol/Lanolin/Calamine/Znox 113 GM Tube 1 APPLIC TOPICAL ×2 (05:09→16:48)
[2020-04-07] MEDS: Gabapentin 100 MG Capsule PO ×3 (05:11→22:21)
[2020-04-07] MEDS: oxyCODONE 5 MG Tablet 10 MG PO ×2 (09:04→22:17)
[2020-04-07] MEDS: Folic Acid 1 MG Tablet PO (09:05)
--- NOTE | 2020-04-07 11:20 | PCM.PN.BLA ---
Progress Note Day #3 Rocephin for fever Afebrile VSS Maintaining appropriate oxygen saturation on RA Oral intake was better yesterday and she took 1020 in orally per the I&O chart. The fluid balance yesterday was +1123. Overnight she was -2300? The Lasix was stopped on 04/04? Discussed with nursing - no problems that need addressed. No one seems to know she has a Jaimes.......may have been placed at the previous hospital for comfort due to pelvic and hip fractures Medication list reviewed. Urine culture grew 11,000-25,000 E. coli. She had 4+ bacteria in the urine specimen but only 0-5 WBCs? Denies suprapubic pain, N/V/flank pain. No cough and no SOB.No LUO and no neck stiffness.Denies lightheadedness. alert, appears in NAD, appropriate and pleasant Lungs CTA HRRR, no gallop abd - soft and NT, BS's present no peripheral edema Impressions 1. fever due to UTI 2. hyponatremia - more likely than not due to volume depletion 3. poor oral intake per graphic chart 4. fracture of the hip and pelvis due to a fall. IV fluids DC yesterday. Sodium is still low at 131.....even after 3 L of NS Hold the ARB if the sodium in the AM is low If the sodium in the AM is still low consider possible DI DC Jaimes if OK with in the AM Inpatient E&M: [id number] Subs Hosp L2
[2020-04-07 13:37] LABS: Anion Gap 5 (5-15); BUN 8 mg/dL (7-18); BUN/Creat Ratio 14.6 RATIO (10-20); Calcium,Total 8.4 mg/dL (8.5-10.1); Chloride 99 mmol/L (98-107); Creatinine, Serum 0.55 mg/dL (0.55-1.02); EST Glomerular Filtration Rate 118 mL/min (>60); Est Glom Filt Rate - Afr Amer 143 mL/min (>60); Estimated Creatinine Clearance 91.76 ml/min; Glucose 103 mg/dL (74-106); Potassium 4.1 mmol/L (3.5-5.1); Sodium Level 131 mmol/L (136-145)
[2020-04-07] MEDS: 0.9% Saline Lock 10 ML Syringe IV ×3 (14:38→22:17)
[2020-04-07 15:35] VITALS: BP 130/66; PULSE 77; RESP 18; TEMP 36.2; O2SAT 96
[2020-04-07] MEDS: Ceftriaxone 1 GM/50 ML BAG IV (22:21)
[2020-04-07] MEDS: QUEtiapine 100 MG Tablet 200 MG PO (22:22)
[2020-04-07 22:25] VITALS: PULSE 84; RESP 18; O2SAT 94
[2020-04-08 05:00] VITALS: BP 135/73; PULSE 81; RESP 16; TEMP 36.8; O2SAT 95
[2020-04-08] MEDS: Polyethylene Glycol 3350 17 GM PACKET PO (06:44)
[2020-04-08] MEDS: Menthol/Lanolin/Calamine/Znox 113 GM Tube 1 APPLIC TOPICAL ×2 (06:44→17:39)
[2020-04-08] MEDS: Benztropine 2 MG Tablet 1 MG PO ×2 (06:45→17:38)
[2020-04-08] MEDS: amLODIPine 5 MG Tablet PO (06:45)
[2020-04-08] MEDS: Lisinopril 20 MG Tablet PO (06:45)
[2020-04-08] MEDS: Gabapentin 100 MG Capsule PO ×3 (06:45→21:36)
[2020-04-08] MEDS: Enoxaparin 40 MG/0.4 ML Syringe SC (06:45)
[2020-04-08] MEDS: Venlafaxine XR 150 MG Capsule PO (06:46)
[2020-04-08] MEDS: Senna/Docusate Sodium 1 Tablet 2 TABLET PO ×2 (06:46→17:38)
[2020-04-08] MEDS: Folic Acid 1 MG Tablet PO (09:10)
[2020-04-08 10:00] VITALS: PULSE 93; RESP 16; O2SAT 99
[2020-04-08] MEDS: oxyCODONE 5 MG Tablet 10 MG PO ×2 (13:49→21:31)
[2020-04-08 14:30] VITALS: BP 111/75; PULSE 80; RESP 16; TEMP 36.6; O2SAT 94
[2020-04-08] MEDS: QUEtiapine 100 MG Tablet 200 MG PO (21:36)
[2020-04-08] MEDS: 0.9% Saline Lock 10 ML Syringe IV (21:55)
[2020-04-08] MEDS: Ceftriaxone 1 GM/50 ML BAG IV (22:32)
--- NOTE | 2020-04-09 04:31 | NURSING ---
Offered Milk of Mag d/t no BM documented since 04/05. Pt refused M.O.M., stating had BM yesterday while with therapy. M.O.M. placed in Pt's med box in room.
[2020-04-09 04:37] VITALS: BP 148/79; PULSE 95; RESP 18; TEMP 36.9; O2SAT 95
[2020-04-09] MEDS: Menthol/Lanolin/Calamine/Znox 113 GM Tube 1 APPLIC TOPICAL ×2 (04:53→17:25)
[2020-04-09] MEDS: Benztropine 2 MG Tablet 1 MG PO ×2 (04:58→17:23)
[2020-04-09] MEDS: Venlafaxine XR 150 MG Capsule PO (04:58)
[2020-04-09] MEDS: Enoxaparin 40 MG/0.4 ML Syringe SC (04:59)
[2020-04-09] MEDS: Nystatin Powder 15gm Bottle 1 APPLIC TOPICAL ×2 (04:59→17:25)
[2020-04-09] MEDS: Gabapentin 100 MG Capsule PO ×3 (05:00→21:24)
[2020-04-09] MEDS: Lisinopril 20 MG Tablet PO (05:00)
[2020-04-09] MEDS: Senna/Docusate Sodium 1 Tablet 2 TABLET PO (05:00)
[2020-04-09] MEDS: amLODIPine 5 MG Tablet PO (05:00)
[2020-04-09] MEDS: oxyCODONE 5 MG Tablet 10 MG PO ×3 (05:00→21:50)
[2020-04-09] MEDS: Folic Acid 1 MG Tablet PO (08:37)
[2020-04-09] MEDS: Acetaminophen 500 MG Tablet 1000 MG PO (08:38)
[2020-04-09] MEDS: 0.9% Saline Lock 10 ML Syringe IV ×2 (08:40→21:25)
--- NOTE | 2020-04-09 10:31 | NURSING ---
PT STATED SHE DID NOT NEED ANY ONE CALLED TO UPDATE.
[2020-04-09 13:27] VITALS: BP 110/63; PULSE 77; RESP 16; TEMP 36.1; O2SAT 97
--- NOTE | 2020-04-09 14:12 | NURSING ---
Resident and family notified of COVID status on unit.
[2020-04-09] MEDS: Tamsulosin HCl 0.4 MG Capsule PO (17:23)
[2020-04-09] MEDS: QUEtiapine 100 MG Tablet 200 MG PO (21:23)
[2020-04-09] MEDS: Ceftriaxone 1 GM/50 ML BAG IV (21:36)
[2020-04-09 23:10] VITALS: PULSE 86; RESP 16; O2SAT 98
--- NOTE | 2020-04-10 00:30 | NURSING ---
PT VERBALLY CALLED OUT/YELLED. WET PROCESS MILLER AND SN TO PT'S ROOM. PT SITTING ON EDGE OF BED, BED ALARM NOT SOUNDING. PT CONFUSED AND DISORIENTED. WET PROCESS MILLER AND SN ASSISTED PT BACK TO BED. RE-ORIENTED TO TIME AND PLACE. PT DENIES ANY FURTHER NEEDS. CALL LIGHT WITHIN REACH AND INSTRUCTED PT TO CALL WITH ANY NEEDS. PT VERBALIZES UNDERSTANDING.
--- NOTE | 2020-04-10 03:20 | NURSING ---
SN NOTES FRONT BOTTOM TOOTH IS VERY LOOSE AND APPEARS THOUGH IT'S ABOUT TO FALL OUT. PT CONFIRMS IT'S LOOSE AND ABLE TO MOVE IT WITH HER TONGUE. PT CURRENTLY DENIES ANY PAIN TO TOOTH/GUMS/MOUTH.
[2020-04-10] MEDS: oxyCODONE 5 MG Tablet 10 MG PO ×2 (05:11→11:13)
[2020-04-10] MEDS: Menthol/Lanolin/Calamine/Znox 113 GM Tube 1 APPLIC TOPICAL ×2 (05:12→17:26)
[2020-04-10] MEDS: Benztropine 2 MG Tablet 1 MG PO ×2 (05:12→17:24)
[2020-04-10] MEDS: Enoxaparin 40 MG/0.4 ML Syringe SC (05:13)
[2020-04-10] MEDS: Venlafaxine XR 150 MG Capsule PO (05:13)
[2020-04-10] MEDS: Gabapentin 100 MG Capsule PO ×3 (05:14→22:14)
[2020-04-10] MEDS: Nystatin Powder 15gm Bottle 1 APPLIC TOPICAL ×2 (05:14→17:25)
[2020-04-10] MEDS: Senna/Docusate Sodium 1 Tablet 2 TABLET PO ×2 (05:15→17:23)
[2020-04-10] MEDS: amLODIPine 5 MG Tablet PO (05:15)
[2020-04-10] MEDS: Lisinopril 20 MG Tablet PO (05:15)
[2020-04-10 05:45] VITALS: BP 117/67; PULSE 88; RESP 17; TEMP 36.3; O2SAT 96
[2020-04-10] MEDS: Folic Acid 1 MG Tablet PO (08:24)
[2020-04-10 09:47] VITALS: PULSE 74; RESP 16; O2SAT 92
[2020-04-10 14:00] VITALS: BP 128/70; PULSE 91; RESP 17; TEMP 36.6; O2SAT 93
[2020-04-10] MEDS: 0.9% Saline Lock 10 ML Syringe IV ×2 (15:05→22:24)
[2020-04-10] MEDS: Tamsulosin HCl 0.4 MG Capsule PO (17:23)
[2020-04-10] MEDS: QUEtiapine 100 MG Tablet 200 MG PO (22:14)
[2020-04-10] MEDS: Ceftriaxone 1 GM/50 ML BAG IV (22:29)
[2020-04-11 03:57] VITALS: BP 120/52; PULSE 68; RESP 18; TEMP 36.9; O2SAT 95
[2020-04-11] MEDS: Menthol/Lanolin/Calamine/Znox 113 GM Tube 1 APPLIC TOPICAL ×2 (04:09→16:52)
[2020-04-11] MEDS: Nystatin Powder 15gm Bottle 1 APPLIC TOPICAL ×2 (04:12→16:52)
[2020-04-11] MEDS: Benztropine 2 MG Tablet 1 MG PO ×2 (04:35→16:51)
[2020-04-11] MEDS: amLODIPine 5 MG Tablet PO (04:35)
[2020-04-11] MEDS: Senna/Docusate Sodium 1 Tablet 2 TABLET PO ×2 (04:35→16:51)
[2020-04-11] MEDS: Lisinopril 20 MG Tablet PO (04:35)
[2020-04-11] MEDS: Gabapentin 100 MG Capsule PO ×3 (04:35→20:42)
[2020-04-11] MEDS: Enoxaparin 40 MG/0.4 ML Syringe SC (04:36)
[2020-04-11] MEDS: Venlafaxine XR 150 MG Capsule PO (04:36)
[2020-04-11] MEDS: oxyCODONE 5 MG Tablet 10 MG PO (04:36)
[2020-04-11] MEDS: Folic Acid 1 MG Tablet PO (07:56)
[2020-04-11] MEDS: traMADol 50 MG Tablet PO ×2 (07:56→20:50)
--- NOTE | 2020-04-11 08:19 | MDS.RN ---
Information for the mds was obtained from review of the clinical record, interview of resident, staff, and direct observation of resident's care.
--- NOTE | 2020-04-11 12:04 | CASEMGMT ---
Social Work Attempted to contact sister to discuss DC plans. Phone has no voicemail. Will continue to attempt. Cecy Roper MSW BILLING MANAGER
[2020-04-11 16:00] VITALS: BP 126/75; PULSE 85; RESP 16; TEMP 36.7; O2SAT 94
[2020-04-11] MEDS: 0.9% Saline Lock 10 ML Syringe IV ×2 (16:48→22:06)
[2020-04-11] MEDS: Tamsulosin HCl 0.4 MG Capsule PO (16:52)
[2020-04-11] MEDS: QUEtiapine 100 MG Tablet 200 MG PO (20:42)
[2020-04-11] MEDS: Acetaminophen 500 MG Tablet 1000 MG PO (20:50)
[2020-04-11] MEDS: Ceftriaxone 1 GM/50 ML BAG IV (22:06)
[2020-04-12 06:13] VITALS: BP 138/63; PULSE 77; RESP 14; TEMP 36; O2SAT 95
[2020-04-12] MEDS: Polyethylene Glycol 3350 17 GM PACKET PO (06:13)
[2020-04-12] MEDS: Gabapentin 100 MG Capsule PO ×3 (06:14→20:47)
[2020-04-12] MEDS: Venlafaxine XR 150 MG Capsule PO (06:14)
[2020-04-12] MEDS: Benztropine 2 MG Tablet 1 MG PO ×2 (06:14→17:20)
[2020-04-12] MEDS: Enoxaparin 40 MG/0.4 ML Syringe SC (06:14)
[2020-04-12] MEDS: Lisinopril 20 MG Tablet PO (06:15)
[2020-04-12] MEDS: Senna/Docusate Sodium 1 Tablet 2 TABLET PO (06:15)
[2020-04-12] MEDS: amLODIPine 5 MG Tablet PO (06:15)
[2020-04-12] MEDS: Menthol/Lanolin/Calamine/Znox 113 GM Tube 1 APPLIC TOPICAL ×2 (06:17→17:19)
[2020-04-12] MEDS: Nystatin Powder 15gm Bottle 1 APPLIC TOPICAL ×2 (06:17→17:19)
[2020-04-12] MEDS: traMADol 50 MG Tablet PO ×2 (06:20→23:55)
[2020-04-12] MEDS: oxyCODONE 5 MG Tablet 10 MG PO ×3 (07:53→17:23)
[2020-04-12] MEDS: Folic Acid 1 MG Tablet PO (07:55)
[2020-04-12] MEDS: 0.9% Saline Lock 10 ML Syringe IV (13:06)
[2020-04-12 13:15] VITALS: PULSE 94; RESP 18; O2SAT 94
[2020-04-12 13:36] VITALS: BP 106/64; PULSE 94; RESP 16; TEMP 36; O2SAT 94
[2020-04-12] MEDS: Tamsulosin HCl 0.4 MG Capsule PO (17:20)
[2020-04-12] MEDS: QUEtiapine 100 MG Tablet 200 MG PO (20:47)
[2020-04-13 04:38] VITALS: BP 135/57; PULSE 80; RESP 16; TEMP 36.1; O2SAT 93
[2020-04-13] MEDS: Enoxaparin 40 MG/0.4 ML Syringe SC (04:39)
[2020-04-13] MEDS: Polyethylene Glycol 3350 17 GM PACKET PO (04:40)
[2020-04-13] MEDS: Senna/Docusate Sodium 1 Tablet 2 TABLET PO ×2 (04:40→17:35)
[2020-04-13] MEDS: Lisinopril 20 MG Tablet PO (04:40)
[2020-04-13] MEDS: amLODIPine 5 MG Tablet PO (04:41)
[2020-04-13] MEDS: Gabapentin 100 MG Capsule PO ×3 (04:41→19:31)
[2020-04-13] MEDS: Venlafaxine XR 150 MG Capsule PO (04:41)
[2020-04-13] MEDS: Benztropine 2 MG Tablet 1 MG PO ×2 (04:41→17:35)
[2020-04-13] MEDS: oxyCODONE 5 MG Tablet 10 MG PO ×2 (04:47→23:10)
[2020-04-13] MEDS: Menthol/Lanolin/Calamine/Znox 113 GM Tube 1 APPLIC TOPICAL ×2 (04:48→17:36)
[2020-04-13] MEDS: Nystatin Powder 15gm Bottle 1 APPLIC TOPICAL ×2 (04:48→17:35)
[2020-04-13] MEDS: 0.9% Saline Lock 10 ML Syringe IV (04:49)
[2020-04-13 08:06] LABS: Absolute Lymphocyte Count 1.59 X10^3/uL (0.83-4.51); Absolute Neutrophil Count 0.9 X10^3/uL (2.0-7.7); Basophil# 0.01 X10^3/uL; Basophil% 0.3 % (0-1); Hematocrit 35.1 % (37-47); Hemoglobin 11.5 g/dL (12.0-15.0); Lymphocyte # 1.59 X10^3/ul (4.0); Lymphocyte % 54.5 % (19-41); Mean Corp Hgb Conc 32.8 g/dL (32-36); Mean Corpuscular Hgb 29.3 pg (27.0-32.0); Mean Corpuscular Volume 89.3 fL (81-99); Mean Platelet Vol. 9.6 fl (6.2-12.0); Monocyte% 13.7 % (0-10); NRBC Flagged by Analyzer 0 % (0-5); Neutrophil # 0.91 X10^3/uL (2.7-7.7); Neutrophil % 31.2 % (47-70); POSITIVE DIFFERENTIAL YES; POSITIVE MORPHOLOGY YES; Platelet Count 292 K/mm3 (150-450); RBC Distribution Width CV 12.5 % (11.6-14.6); RBC Distribution Width SD 41.1 fl (35.1-43.9); Red Blood Count 3.93 M/mm3 (4.2-5.4); White Blood Count 2.9 K/mm3 (4.4-11.0)
[2020-04-13] MEDS: traMADol 50 MG Tablet PO (08:17)
[2020-04-13] MEDS: Folic Acid 1 MG Tablet PO (08:18)
[2020-04-13 08:23] LABS: Anion Gap 4 (5-15); BUN 7 mg/dL (7-18); BUN/Creat Ratio 14.1 RATIO (10-20); Calcium,Total 8.7 mg/dL (8.5-10.1); Chloride 99 mmol/L (98-107); EST Glomerular Filtration Rate 132 mL/min (>60); Est Glom Filt Rate - Afr Amer 160 mL/min (>60); Estimated Creatinine Clearance 100.94 ml/min; Glucose 87 mg/dL (74-106); Potassium 4.7 mmol/L (3.5-5.1); Sodium Level 133 mmol/L (136-145)
--- NOTE | 2020-04-13 08:23 | NURSING ---
ok per rn to pull stat lock. pt tolerated well.
[2020-04-13 08:34] LABS: Differential Indicated SCAN CRITERIA MET
[2020-04-13 08:47] LABS: Differential Comment SCANNED; Reactive Lymphocyte 2+
[2020-04-13 14:03] VITALS: BP 127/66; PULSE 91; RESP 20; TEMP 36.3; O2SAT 95
--- NOTE | 2020-04-13 14:53 | NURSING ---
pt stated she didnt need anyone called to update.
[2020-04-13] MEDS: Tamsulosin HCl 0.4 MG Capsule PO (17:36)
[2020-04-13] MEDS: QUEtiapine 100 MG Tablet 200 MG PO (19:30)
[2020-04-14 06:45] VITALS: BP 165/79; PULSE 99; RESP 18; TEMP 36.4; O2SAT 95
[2020-04-14] MEDS: oxyCODONE 5 MG Tablet 10 MG PO ×3 (06:48→20:06)
[2020-04-14] MEDS: Senna/Docusate Sodium 1 Tablet 2 TABLET PO ×2 (06:49→17:04)
[2020-04-14] MEDS: Enoxaparin 40 MG/0.4 ML Syringe SC (06:49)
[2020-04-14] MEDS: Venlafaxine XR 150 MG Capsule PO (06:49)
[2020-04-14] MEDS: amLODIPine 5 MG Tablet PO (06:49)
[2020-04-14] MEDS: Benztropine 2 MG Tablet 1 MG PO ×2 (06:49→17:04)
[2020-04-14] MEDS: Lisinopril 20 MG Tablet PO (06:49)
[2020-04-14] MEDS: Polyethylene Glycol 3350 17 GM PACKET PO (06:49)
[2020-04-14] MEDS: Gabapentin 100 MG Capsule PO ×3 (06:50→22:38)
[2020-04-14] MEDS: Nystatin Powder 15gm Bottle 1 APPLIC TOPICAL ×2 (06:50→16:56)
[2020-04-14] MEDS: Menthol/Lanolin/Calamine/Znox 113 GM Tube 1 APPLIC TOPICAL ×2 (06:51→16:59)
[2020-04-14] MEDS: Folic Acid 1 MG Tablet PO (07:46)
[2020-04-14 09:45] VITALS: PULSE 103; RESP 18; O2SAT 97
[2020-04-14] MEDS: Acetaminophen 500 MG Tablet 1000 MG PO (10:31)
[2020-04-14] MEDS: traMADol 50 MG Tablet PO (10:32)
[2020-04-14 14:27] VITALS: BP 126/63; PULSE 89; RESP 18; TEMP 36.6; O2SAT 95
--- NOTE | 2020-04-14 15:00 | NURSING ---
PT STATED SHE TALKS TO SISTER EVERY DAY.
[2020-04-14] MEDS: Tamsulosin HCl 0.4 MG Capsule PO (17:04)
[2020-04-14 20:00] VITALS: BP 113/56; PULSE 85; RESP 16; O2SAT 94
[2020-04-14] MEDS: QUEtiapine 100 MG Tablet 200 MG PO (22:38)
[2020-04-15] MEDS: Benztropine 2 MG Tablet 1 MG PO ×2 (04:52→17:24)
[2020-04-15] MEDS: Venlafaxine XR 150 MG Capsule PO (04:53)
[2020-04-15] MEDS: Lisinopril 20 MG Tablet PO (04:53)
[2020-04-15] MEDS: Nystatin Powder 15gm Bottle 1 APPLIC TOPICAL ×2 (04:53→17:25)
[2020-04-15] MEDS: Senna/Docusate Sodium 1 Tablet 2 TABLET PO (04:53)
[2020-04-15] MEDS: amLODIPine 5 MG Tablet PO (04:53)
[2020-04-15] MEDS: Menthol/Lanolin/Calamine/Znox 113 GM Tube 1 APPLIC TOPICAL ×2 (04:54→17:26)
[2020-04-15] MEDS: Enoxaparin 40 MG/0.4 ML Syringe SC (04:54)
[2020-04-15] MEDS: Polyethylene Glycol 3350 17 GM PACKET PO (04:55)
[2020-04-15] MEDS: Gabapentin 100 MG Capsule PO ×3 (04:55→20:52)
[2020-04-15 05:00] VITALS: BP 115/65; PULSE 87; RESP 18; TEMP 36.6; O2SAT 91
[2020-04-15] MEDS: Folic Acid 1 MG Tablet PO (07:53)
[2020-04-15] MEDS: oxyCODONE 5 MG Tablet 10 MG PO (10:33)
--- NOTE | 2020-04-15 12:00 | NURSING ---
Addendum entered by Jumana Whittington 04/15/20 19:05: PCR test results negative, pt taken out of isolation precautions Original Note: Pt's rapid covid test came back positive, RN and Dr. Rinaldi aware, pt placed in isolation precautions, PCR ordered
[2020-04-15 16:00] VITALS: BP 121/68; PULSE 90; RESP 18; TEMP 36.1; O2SAT 93
[2020-04-15] MEDS: Tamsulosin HCl 0.4 MG Capsule PO (17:24)
[2020-04-15] MEDS: QUEtiapine 100 MG Tablet 200 MG PO (20:52)
--- NOTE | 2020-04-16 00:42 | NURSING ---
Patient bladder scanned for 830 cc. Patient sat on the bedside commode for 30+ minutes. Patient unable to go. Patient very uncomfortable. Patient straight cathed at this time for 950 cc of clear yellow urine. Patient states that she feels much better and that the pressure has been relieved.
[2020-04-16 04:49] VITALS: BP 168/72; PULSE 94; RESP 16; TEMP 36.3; O2SAT 98
[2020-04-16] MEDS: Gabapentin 100 MG Capsule PO ×3 (04:51→21:16)
[2020-04-16] MEDS: Enoxaparin 40 MG/0.4 ML Syringe SC (04:51)
[2020-04-16] MEDS: Benztropine 2 MG Tablet 1 MG PO ×2 (04:52→17:41)
[2020-04-16] MEDS: Venlafaxine XR 150 MG Capsule PO (04:52)
[2020-04-16] MEDS: amLODIPine 5 MG Tablet PO (04:52)
[2020-04-16] MEDS: Lisinopril 20 MG Tablet PO (04:52)
[2020-04-16] MEDS: Nystatin Powder 15gm Bottle 1 APPLIC TOPICAL ×2 (04:53→17:41)
[2020-04-16] MEDS: Menthol/Lanolin/Calamine/Znox 113 GM Tube 1 APPLIC TOPICAL ×2 (04:53→17:43)
[2020-04-16] MEDS: Folic Acid 1 MG Tablet PO (07:52)
[2020-04-16] MEDS: oxyCODONE 5 MG Tablet 10 MG PO ×2 (07:52→21:23)
[2020-04-16 09:16] VITALS: PULSE 96; RESP 18; O2SAT 92
--- NOTE | 2020-04-16 09:48 | NURSING ---
Pt switched rooms today, sister was called to give update, no answer but message was left
--- NOTE | 2020-04-16 13:01 | NURSING ---
Addendum entered by Jumana Whittington 04/16/20 13:32: Pt had CT done not MRI. CT results obtained and given to Dr. Rinaldi to review Original Note: This nurse talked with sister and updated on room change, sister requested therapy call her today for an update, therapy is aware. Sister concerned that pt seems a little confused at times and is asking about loxapine she had dropped off for pt, she also reported pt had some kind of scan done at [facility] in [place] showing pt had a brain aneurysm and is concerned that pt's confusion could be caused by a growth in the aneurysm. This nurse called [facility] and neurosurgery staff confirmed pt had MRI done a long time ago and would fax over report.
[2020-04-16 13:17] VITALS: BP 100/55; PULSE 88; RESP 18; TEMP 36.1; O2SAT 96
[2020-04-16] MEDS: traMADol 50 MG Tablet PO (13:59)
--- NOTE | 2020-04-16 14:26 | CASEMGMT ---
Social Work Sister contacted SW 04/15 in regards to call last week to discuss DC planning, however, she had questions for nursing, so call quickly transferred. SW contacted sister this date to follow up on DC plans as IDT set DC date for 04/26. SW attempted to explain reason for DC when sister interrupted SW upset as to why pt is being discharged as she cannot function independently like she needs to to return home. Explained IDT understands pt is not independent and cannot return home, which is why IDT is recommending SNF stay for continued healing of the fx as pt is not able to make further significant progress, and has not been able to recently. Sister still upset and questioning why she wasn't notified prior of this information. SW attempted to explain this worker has contacted sister prior to discuss and that is the goal of this conversation - allowing significant notice of DC date of 04/26. Sister inquired further about SNF stay. Explained Medicare does not pay for intermediate/senior living/nonskilled care, thus it would be an out of pocket cost or SW can assist in determining if pt is eligible for ENMA and assist with trev. Sister insisted pt is not eligible for ENMA that she makes too much money. Attempted to explain, ENMA looks at other qualifiers and over income could still allow pt to be eligible. did not want SW to continue to explain requirements, and stated she would have to talk to the pt's dtr before providing any information. requested to speak with therapy about pt's levels and why she isn't making progress or participating. SW explained pt is definitely participating, very motivated and follows directions. However, it will take time for fx to heal which no longer qualifies for skilled care in SNF thus reason for DC. again requested therapist for phone call. SW agreed. NOMNC issued to pt - pt agreeable. SW to continue to follow. Cecy Roper, KINDERGARTNER DESIGN QUALITY ENGINEER
--- NOTE | 2020-04-16 15:09 | PT ---
Spoke with pt's sister and provided update. Pt is requiring mod A for bed mobility and CGA/min A for transfers with FWW. Pt is needing assistance with toileting and lower body dressing. Explained that pt will need assistance for the next several months and that [facility] is not a penitentiary care facility. Recommended to both pt and sister that they have an alternate plan in place as pt will not be independent in the next few weeks and pt's sister is unable to assist pt. Pt and sister both in agreement that pt will need more time at another facility to continue to heal and further progress with therapy. Explained that pt will need extended time to fully heal from her fractured pelvis and hip. Pt and her sister both verbalized understanding.
--- NOTE | 2020-04-16 16:28 | CASEMGMT ---
Call placed to pt's sister Sachi per her request regarding pt's discharge plan. Sachi states that the patient has 100 days of coverage available to her and feels the patient should continue to receive longterm care either at our facility or at the next ECF. Explained to Sachi that although insurance may provide 100 days of coverage, these days must qualify for the skilled benefit. Explained that the pt has reached a point in her therapy where she needs assistance with her ADLs and general care only until her fractures are healed. Explained that this level of care does not qualify for the skilled benefit and therefore is appropriate for a jail care facility which would be private pay. Sachi states she feels she was lied to regarding a need to liquidate her assets. Explained that this would have been information provided to facilitate payment of the jail care facility. Sachi states repeatedly that the documentation must be saying that the patient is not participating in therapy and that the documentation needs to be changed to reflect that the pt requires longterm. Reassured Sachi that the documentation does not state the patient is refusing care but rather that the patient is unable to fully participate due to her fractures. Sachi remained insistent that the patient continues to require longterm care either at [facility] or at another ECF. Will collaborate with PT in the AM regarding needs and will follow-up with Sachi on 04/17/2020. Ariane Lee RN CM
[2020-04-16] MEDS: Tamsulosin HCl 0.4 MG Capsule 0.8 MG PO (17:40)
--- NOTE | 2020-04-16 19:43 | NURSING ---
Sister Sachi called and notified of Dr. Mercer recommendation of waiting until pt discharges from TCU and f/u with her psychiatrist before restarting Loxapin, sister also updated on N.O for CTA of head and neck.
[2020-04-16 21:08] VITALS: PULSE 80; RESP 16; O2SAT 98
[2020-04-16] MEDS: QUEtiapine 100 MG Tablet 200 MG PO (21:16)
[2020-04-17 05:00] VITALS: BP 149/96; PULSE 84; RESP 16; TEMP 36.7; O2SAT 95
[2020-04-17] MEDS: Polyethylene Glycol 3350 17 GM PACKET PO (05:04)
[2020-04-17] MEDS: Enoxaparin 40 MG/0.4 ML Syringe SC (05:04)
[2020-04-17] MEDS: amLODIPine 5 MG Tablet PO (05:05)
[2020-04-17] MEDS: Venlafaxine XR 150 MG Capsule PO (05:05)
[2020-04-17] MEDS: Lisinopril 20 MG Tablet PO (05:05)
[2020-04-17] MEDS: Senna/Docusate Sodium 1 Tablet 2 TABLET PO (05:05)
[2020-04-17] MEDS: Benztropine 2 MG Tablet 1 MG PO ×2 (05:05→17:22)
[2020-04-17] MEDS: Gabapentin 100 MG Capsule PO ×3 (05:05→21:43)
[2020-04-17] MEDS: Nystatin Powder 15gm Bottle 1 APPLIC TOPICAL ×2 (05:06→17:25)
[2020-04-17] MEDS: Menthol/Lanolin/Calamine/Znox 113 GM Tube 1 APPLIC TOPICAL ×2 (05:06→17:25)
--- NOTE | 2020-04-17 07:30 | PCA ---
Addendum entered by Kailyn Bucio 04/17/20 09:00: RN into room. Patient did agree to bladder scan. read greater than 999. Assisted patient back up to BSC and was able to void 900. RN updated Original Note: This BUSINESS OFFICE REPRESENTATIVE and Kymberly have assisted patient to BSC x3 since 6am today. Patient unable to void. Patient c/o back and legs hurting. Refusing to let us bladder scan her. Explained it was just to see how much if anything was in her bladder. Patient yelling out No! No! Please. Told her we would let the nurse know of pain and not letting us bladder scan her. Siria SANCHEZ aware
[2020-04-17] MEDS: oxyCODONE 5 MG Tablet 10 MG PO ×2 (09:30→21:50)
[2020-04-17] MEDS: Folic Acid 1 MG Tablet PO (09:30)
--- NOTE | 2020-04-17 10:57 | PT ---
Attempted to call pt's sister Sachi to provide update and discuss discharge plan. Young child answered the phone and said Sachi was sleeping. Will attempt to call family again this afternoon.
--- NOTE | 2020-04-17 12:46 | PT ---
Spoke with pt's sister Sachi again about plan for discharge and pt's level of assistance. Pt is currently mod A for bed mobility and min A for sit to stands and transfers with FWW. pt is very limited with distance with ambulation with FWW and is limited with all mobility due to pain. Pt's sister Sachi still not understanding why pt needs to go to LTC facility. Explained that pt has not made progress in the past few weeks and today is having increased pain. Pt will need to go to another facility at discharge due to needing assistance and pt's sister being unable to care for pt. Explained that pt could go to another facility and that part B benefits would cover part of the cost. Recommended pt's sister call the facility she is thinking of and have them better explain insurance benefits and coverages. Pt's sister stated she was thinking of [facility]. Again recommended she call [facility] so they could better explain benefits and what services are covered by insurance and what services would be out of pocket cost. Pt's sister stated she didn't think she was able to call today but would try to call tomorrow. Again explained that a discharge plan needed to be in place prior to discharging on 04/26. Again explained that pt has not made progress during her stay in TCU and that she will need to go to a facility so she can continue to heal. Explained that TCU is not a LTC facility and since pt will need an extensive amount of time to heal, she will need to go to another facility as her sister cannot provide care for her at home. Pt's sister then asked if pt would make progress, could she remain in TCU longer. This TOUCH UP PAINTER HAND explained that pt would need to make significant progress and would need to be ambulating at least 5-10 ft further than she currently is now in order to remain in TCU under skilled care. Again explained that a discharge plan needed to be in place, as this TOUCH UP PAINTER HAND did not think pt would make significant progress in the next week due to her injury and needing extended time to heal. Pt's sister, Sachi, was thankful for phone call and stated she would be contacting [facility]. Reported conversation to SW.
[2020-04-17 13:43] VITALS: BP 93/58; PULSE 106; RESP 20; TEMP 36; O2SAT 93
--- NOTE | 2020-04-17 15:35 | CASEMGMT ---
Social Work Placed follow up to sister but she was not available. Will continue to attempt. Cecy Roper, ADULT CROSSING GUARD CHAIR
[2020-04-17] MEDS: Tamsulosin HCl 0.4 MG Capsule 0.8 MG PO (17:21)
--- NOTE | 2020-04-17 19:33 | PCM.DC ---
- Discharge Diagnoses Current Active Problems: Current Active and Chronic Problems Debility (Acute) Fall (Acute) Closed left hip fracture (Acute) Pelvic fracture (Acute) Ventral hernia (Chronic) Abdominal aortic aneurysm (AAA) 3.0 cm to 5.0 cm in diameter in female (Chronic) Hypertension (Chronic) Depression (Chronic) Anxiety (Chronic) Schizoaffective disorder (Chronic) Cellulitis of left lower extremity (Acute) You will use the following diet at home:: No restrictions, Regular Your food should be the consistency of: Regular Your liquids should be the consistency of: Regular/Thin Discharge Activity: Return to Normal Activity, May Shower, Use Walker Weight Bearing Status: Weight bearing as tolerated Call your doctor if you observe: Fever of 101 or Higher, Inability to urinate, Inability to have a bowel movement, Shortness of breath, Chest pain, Uncontrolled pain Allergies/Adverse Reactions: Allergies azithromycin Allergy (Verified 03/29/20 15:28) PT UNSURE OF REACTION Sulfa (Sulfonamide Antibiotics) Allergy (Verified 03/29/20 15:28) Hives olanzapine [From Zyprexa] Adverse Reaction (Verified 03/29/20 17:03) Shortness of breath Medications to take at Discharge Amlodipine [Norvasc] 5 mg PO DAILY 03/29/20 Benztropine [Cogentin] 1 mg PO BID 03/29/20 Enoxaparin [Lovenox] 40 mg SC DAILY@0600 03/29/20 Folic Acid 1 mg PO DAILY 03/29/20 Gabapentin [Neurontin] 100 mg PO TID 03/29/20 Lisinopril 20 mg PO DAILY 03/29/20 Oxycodone HCl/Acetaminophen [Oxycodone-Acetaminophen 5-325] 1 ea PO Q6H PRN PRN 03/29/20 Quetiapine Fumarate 200 mg PO QHS 03/29/20 Venlafaxine HCl [Venlafaxine HCl ER] 150 mg PO DAILY 03/29/20 Acetaminophen [Tylenol] 1,000 mg PO Q6H PRN tablet 04/17/20 Bisacodyl [Dulcolax] 10 mg RECTAL DAILY PRN suppos. 04/17/20 Emollient Combination No.72 [Eucerin Intensive Repair] 1 applic TOPICAL HS lotion 04/17/20 Magnesium Hydroxide [Milk Of Magnesia] 30 ml PO DAILY PRN udc 04/17/20 Menthol/Lanolin/Calamine/Znox [Calmoseptine Ointment] 1 applic TOPICAL BID tube 04/17/20 Nystatin Powder [Mycostatin Powder] 1 applic TOPICAL BID bottle 04/17/20 Oxycodone [Oxyir] 10 mg PO Q4H PRN #36 tab 04/17/20 Polyethylene Glycol 3350 [Miralax] 17 gm PO DAILY packet 04/17/20 Senna/Docusate Sodium [Senokot-S] 2 tablet PO BID tablet 04/17/20 Tamsulosin HCl [Flomax] 0.8 mg PO DAILY@1730 capsule 04/17/20 traMADol [Ultram] 50 mg PO Q6H PRN PRN #12 tab 04/17/20 The following prescriptions were given: Oxycodone [Oxyir] 10 mg PO Q4H PRN #36 tab PRN Reason: Pain Score 6-10 Prescription Printed traMADol [Ultram] 50 mg PO Q6H PRN PRN #12 tab PRN Reason: Pain Score 4-5 Prescription Printed Orders to be completed after discharge: CTA Head AND Neck W/ Contrast [CT] Time Frame: 04/17/20, Facility: [facility], Location: [facility] Please follow up with your Primary Care Physician in: 1 week. Test Results: Test results from this visit will be discussed in further detail at your follow-up appointment, if applicable. Proposed Discharge Date: 04/26/20
--- NOTE | 2020-04-17 19:35 | DS.PCM_ITS ---
Discharge Date and Diagnosis - Problem List Patient Problems: Active and Suspected Problems Debility (Acute) Fall (Acute) Closed left hip fracture (Acute) Pelvic fracture (Acute) Cellulitis of left lower extremity (Acute) Date of Admission: 03/29/20 Date of Discharge: 04/26/20 - Primary Discharge Diagnosis Acute Problems: Active Problems Debility (Acute) Fall (Acute) Closed left hip fracture (Acute) Pelvic fracture (Acute) Cellulitis of left lower extremity (Acute) - Secondary Discharge Diagnosis Chronic Problems: Chronic Problems Ventral hernia (Chronic) Abdominal aortic aneurysm (AAA) 3.0 cm to 5.0 cm in diameter in female (Chronic) Hypertension (Chronic) Depression (Chronic) Anxiety (Chronic) Schizoaffective disorder (Chronic) Hospital Course and Treatment Imaging Results: 03/29/20 16:03 Diet: Regular - General Food consistency:: Regular Liquid Consistency:: Regular/Thin Is pt able to select menu?: Yes Clinical Impression(s) from Imaging Studies Chest X-Ray 04/05/20 10:31 IMPRESSION: Normal x-ray examination of the chest. Electronically Signed: Bobby Michel DO at 11:13 EST Tel , Service support , Operations: None Procedures: None Summary of Care Provided: The patient is a 64 year old Female with below past medical history hospitalized for left hip fracture, pelvic fracture, managed conservatively, no surgical intervention, admitted to TCU with debility, here for rehabilitation, strengthening, prior to discharge home alone. [] Discharge to nursing facility at intermediate level of care. Patient Problems: Active and Suspected Problems Debility (Acute) Fall (Acute) Closed left hip fracture (Acute) Pelvic fracture (Acute) Cellulitis of left lower extremity (Acute) - Physical Exam Vitals/I&O's: Vital Signs Temp Pulse Resp BP Pulse Ox 96.8 F L 106 H 20 H 93/58 L 93 04/17/20 13:43 04/17/20 13:43 04/17/20 13:43 04/17/20 13:43 04/17/20 13:43 Oxygen Delivery Method Room Air Weight: 64.637 kg Body Mass Index (BMI) 25.2 Intake and Output for Last 24 Hours 04/15/20 04/16/20 04/17/20 23:59 23:59 23:59 Intake Total 1080 / 1080 720 / 720 840 / 840 Output Total 1400 / 1400 1550 / 1550 1200 / 1200 Balance -320 / -320 -830 / -830 -360 / -360 Microbiology Past 72 Hours 04/15/20 11:30 Nasal Secretion SARS-CoV-2 Antigen (Rapid) - Final SARS-CoV-2 (COVID 19) Current Medications Acetaminophen (Acetaminophen 500 Mg Tablet) 1,000 mg PO Q6H PRN PRN Reason: Pain Score 1-10 Last Admin: 04/14/20 10:31 Dose: 1,000 mg Documented by: Amlodipine Besylate (Amlodipine 5 Mg Tablet) 5 mg PO DAILY [facility] Last Admin: 04/17/20 05:05 Dose: 5 mg Documented by: Benztropine Mesylate (Benztropine 2 Mg Tablet) 1 mg PO BID [facility] Last Admin: 04/17/20 17:22 Dose: 1 mg Documented by: Bisacodyl (Bisacodyl 10 Mg Suppository) 10 mg RECTAL DAILY PRN PRN Reason: Constipation Calamine/Phenol (Menthol/Lanolin/Calamine/Znox 113 Gm Tube) 1 applic TOPICAL BID [facility]; Protocol Last Admin: 04/17/20 17:25 Dose: 1 applicatio Documented by: Emollient Ointment (Emollient Combination No.72 500 Ml Lotion) 1 applic TOPICAL HS [facility]; Protocol Last Admin: 04/16/20 21:24 Dose: 1 applicatio Documented by: Enoxaparin Sodium (Enoxaparin 40 Mg/0.4 Ml Syringe) 40 mg SC DAILY@0600 [facility] Last Admin: 04/17/20 05:04 Dose: 40 mg Documented by: Folic Acid (Folic Acid 1 Mg Tablet) 1 mg PO DAILYCM [facility] Last Admin: 04/17/20 09:30 Dose: 1 mg Documented by: Gabapentin (Gabapentin 100 Mg Capsule) 100 mg PO TID [facility] Last Admin: 04/17/20 14:57 Dose: 100 mg Documented by: Sodium Chloride () 250 mls @ 15 mls/hr IV .[id number] PRN PRN Reason: Saline Flush Last Infusion: 04/12/20 00:40 Dose: Infused Documented by: Sodium Chloride () 250 mls @ 15 mls/hr IV .[id number] PRN PRN Reason: Additional IVPB Infusion Lisinopril (Lisinopril 20 Mg Tablet) 20 mg PO DAILY [facility] Last Admin: 04/17/20 05:05 Dose: 20 mg Documented by: Magnesium Hydroxide (Magnesium Hydroxide 30 Ml Udc) 30 ml PO DAILY PRN PRN Reason: Constipation Nystatin (Nystatin Powder 15gm Bottle) 1 applic TOPICAL BID [facility]; Protocol Last Admin: 04/17/20 17:25 Dose: 1 applicatio Documented by: Oxycodone HCl (Oxycodone 5 Mg Tablet) 10 mg PO Q4H PRN PRN Reason: Pain Score 6-10 Last Admin: 04/17/20 09:30 Dose: 10 mg Documented by: Polyethylene Glycol (Polyethylene Glycol 3350 17 Gm Packet) 17 gm PO DAILY [facility] Last Admin: 04/17/20 05:04 Dose: 17 gm Documented by: Quetiapine Fumarate (Quetiapine 100 Mg Tablet) 200 mg PO QHS [facility] Last Admin: 04/16/20 21:16 Dose: 200 mg Documented by: Senna/Docusate Sodium (Senna/Docusate Sodium 1 Tablet) 2 tablet PO BID [facility] Last Admin: 04/17/20 17:20 Dose: Not Given Documented by: Sodium Chloride (0.9% Saline Lock 10 Ml Syringe) 10 - 40 ml IV UD PRN PRN Reason: SALINE FLUSH Last Admin: 04/13/20 04:49 Dose: 10 ml Documented by: Sodium Chloride (0.9% Saline Lock 10 Ml Syringe) 10 - 40 ml IV UD PRN PRN Reason: SALINE FLUSH Tamsulosin HCl (Tamsulosin Hcl 0.4 Mg Capsule) 0.8 mg PO DAILY@1730 [facility] Last Admin: 04/17/20 17:21 Dose: 0.8 mg Documented by: Tramadol HCl (Tramadol 50 Mg Tablet) 50 mg PO Q6H PRN PRN PRN Reason: Pain Score 4-5 Last Admin: 04/16/20 13:59 Dose: 50 mg Documented by: Venlafaxine HCl (Venlafaxine Xr 150 Mg Capsule) 150 mg PO DAILY [facility] Last Admin: 04/17/20 05:05 Dose: 150 mg Documented by: Discharge Diet: No Restrictions Discharge Activity: Return to Normal Activity, May Shower, Use Walker Weight Bearing Status: Weight bearing as tolerated Call your doctor if you observe: Fever of 101 or Higher, Inability to urinate, Inability to have a bowel movement, Shortness of breath, Chest pain, Uncontrolled pain Home Medications: Medications to take at Discharge Amlodipine [Norvasc] 5 mg PO DAILY 03/29/20 Benztropine [Cogentin] 1 mg PO BID 03/29/20 Enoxaparin [Lovenox] 40 mg SC DAILY@0600 03/29/20 Folic Acid 1 mg PO DAILY 03/29/20 Gabapentin [Neurontin] 100 mg PO TID 03/29/20 Lisinopril 20 mg PO DAILY 03/29/20 Oxycodone HCl/Acetaminophen [Oxycodone-Acetaminophen 5-325] 1 ea PO Q6H PRN PRN 03/29/20 Quetiapine Fumarate 200 mg PO QHS 03/29/20 Venlafaxine HCl [Venlafaxine HCl ER] 150 mg PO DAILY 03/29/20 Acetaminophen [Tylenol] 1,000 mg PO Q6H PRN tablet 04/17/20 Bisacodyl [Dulcolax] 10 mg RECTAL DAILY PRN suppos. 04/17/20 Emollient Combination No.72 [Eucerin Intensive Repair] 1 applic TOPICAL HS lotion 04/17/20 Magnesium Hydroxide [Milk Of Magnesia] 30 ml PO DAILY PRN udc 04/17/20 Menthol/Lanolin/Calamine/Znox [Calmoseptine Ointment] 1 applic TOPICAL BID tube 04/17/20 Nystatin Powder [Mycostatin Powder] 1 applic TOPICAL BID bottle 04/17/20 Oxycodone [Oxyir] 10 mg PO Q4H PRN #36 tab 04/17/20 Polyethylene Glycol 3350 [Miralax] 17 gm PO DAILY packet 04/17/20 Senna/Docusate Sodium [Senokot-S] 2 tablet PO BID tablet 04/17/20 Tamsulosin HCl [Flomax] 0.8 mg PO DAILY@1730 capsule 04/17/20 traMADol [Ultram] 50 mg PO Q6H PRN PRN #12 tab 04/17/20 Following Prescriptions Were Given to Patient: Oxycodone [Oxyir] 10 mg PO Q4H PRN #36 tab PRN Reason: Pain Score 6-10 Prescription Printed traMADol [Ultram] 50 mg PO Q6H PRN PRN #12 tab PRN Reason: Pain Score 4-5 Prescription Printed Other Amb Orders: CTA Head AND Neck W/ Contrast [CT] Time Frame: 04/17/20, Facility: [facility], Location: [facility] Please follow up with your Primary Care Physician in: 1 week. Disposition: Asstd Living/Non-Skill NH Minutes spent on discharge:: 35 Patient Condition:: Stable Medical Necessity - Tobacco Use Smoking Status: Light Smoker (<10/day) Tobacco Use: Cigarettes Meaningful Use Info Meaningful Use Diagnoses (Choose all that apply): None applicable
--- NOTE | 2020-04-17 19:36 | PCM.TXEXTCAR ---
- Diet 03/29/20 16:03 Diet: Regular - General Food consistency:: Regular Liquid Consistency:: Regular/Thin Is pt able to select menu?: Yes - Routine Orders/Code Status Suppository Type: Dulcolax 10mg Suppository Frequency: Daily PRN Code Status: Full Code - Therapies Weight Bearing: Toe-touch weight bearing Extremity Affected:: Left Lower Physical Therapy: Eval and Treat Occupational Therapy: Eval and Treat - Problem/Diagnosis (1) Debility Status: Acute (2) Fall Status: Acute (3) Closed left hip fracture Status: Acute (4) Pelvic fracture Status: Acute (5) Ventral hernia Status: Chronic (6) Abdominal aortic aneurysm (AAA) 3.0 cm to 5.0 cm in diameter in female Status: Chronic (7) Hypertension Status: Chronic (8) Depression Status: Chronic (9) Anxiety Status: Chronic (10) Schizoaffective disorder Status: Chronic (11) Cellulitis of left lower extremity Status: Acute - Allergies/Procedures Done in Hospital Allergies/Adverse Reactions: Allergies azithromycin Allergy (Verified 03/29/20 15:28) PT UNSURE OF REACTION Sulfa (Sulfonamide Antibiotics) Allergy (Verified 03/29/20 15:28) Hives olanzapine [From Zyprexa] Adverse Reaction (Verified 03/29/20 17:03) Shortness of breath - Type of Care/Length of Stay Estimated LOS: More Than 30 Days Type of Care Needed: Intermediate Rehab Potential: Fair Prognosis: Fair - Additional Orders/Day of Discharge Day of Discharge: 04/26/20 - Dietary and Speech Recommendations Dietitian Recommendations/Changes: Continue regular/select diet. - Follow Up Care Please follow up with your Primary Care Physician in: 1 week.
--- NOTE | 2020-04-17 19:48 | NURSING ---
Pt came up to floor from CT Iv contrast infiltrated on left AC. Pt states that the area is stinging and pain of 4 diameter of induration 6mpa2ey warm tiny blister has formed. Pulse 2+ no numbness or tingling.
[2020-04-17] MEDS: QUEtiapine 100 MG Tablet 200 MG PO (21:44)
[2020-04-17] MEDS: 0.9% Saline Lock 10 ML Syringe IV (21:54)
[2020-04-18 05:00] VITALS: BP 134/71; PULSE 82; RESP 16; TEMP 36.7; O2SAT 96
[2020-04-18] MEDS: Polyethylene Glycol 3350 17 GM PACKET PO (05:32)
[2020-04-18] MEDS: Senna/Docusate Sodium 1 Tablet 2 TABLET PO (05:33)
[2020-04-18] MEDS: Gabapentin 100 MG Capsule PO ×3 (05:33→20:37)
[2020-04-18] MEDS: amLODIPine 5 MG Tablet PO (05:33)
[2020-04-18] MEDS: Lisinopril 20 MG Tablet PO (05:33)
[2020-04-18] MEDS: Nystatin Powder 15gm Bottle 1 APPLIC TOPICAL ×2 (05:33→17:24)
[2020-04-18] MEDS: Enoxaparin 40 MG/0.4 ML Syringe SC (05:33)
[2020-04-18] MEDS: Venlafaxine XR 150 MG Capsule PO (05:33)
[2020-04-18] MEDS: Menthol/Lanolin/Calamine/Znox 113 GM Tube 1 APPLIC TOPICAL ×2 (05:41→17:25)
[2020-04-18] MEDS: Benztropine 2 MG Tablet 1 MG PO ×2 (05:41→17:23)
[2020-04-18] MEDS: Folic Acid 1 MG Tablet PO (08:35)
[2020-04-18] MEDS: oxyCODONE 5 MG Tablet 10 MG PO ×2 (08:37→13:12)
--- NOTE | 2020-04-18 13:38 | NURSING ---
Resident and family notified of current COVID status on the unit.
[2020-04-18 13:51] VITALS: BP 113/68; PULSE 84; RESP 17; TEMP 36.2; O2SAT 98
--- NOTE | 2020-04-18 14:52 | NURSING ---
PT UPDATED ON COVID POSITIVE STAFF.
--- NOTE | 2020-04-18 14:53 | CASEMGMT ---
Social Work Contacted sister to follow up on DC plans. Sister expressed still being confused about skilled and going to a residential facility and why [facility] is discharging her from TCU. attempted to reexplained pt's need for intermediate/intermediate care at another facility and not longer meeting Medicare guidelines. Thus Medicare will not pay for her stay any longer (after 04/26) and need to pay privately but can have Part B therapies. Sister got increasingly agitated and began yelling at swearing at . [facility] offered to email [employer] to sister to see LCD and to file an appeal, if she wished, along with hospital patient advocate contact information. Sister agreed and provided email address. Information sent. SW attempted to explained this worker is here to help and assist with DC plans. If sister will provide SNF choice to , this worker can make referral to determine if the facility can meet pt's needs. Sister did not want to complete that task. SW reiterated pt will be discharging 04/26 and for sister to notify where so proper referrals can be made. Will continue to follow. Cecy Roper, CONSTANZA HOLLINSW
[2020-04-18] MEDS: Tamsulosin HCl 0.4 MG Capsule 0.8 MG PO (17:23)
[2020-04-18 20:25] VITALS: PULSE 78; RESP 16; O2SAT 97
[2020-04-18] MEDS: QUEtiapine 100 MG Tablet 200 MG PO (20:38)
[2020-04-19 05:00] VITALS: BP 157/78; PULSE 95; RESP 16; TEMP 36.7; O2SAT 95
[2020-04-19] MEDS: oxyCODONE 5 MG Tablet 10 MG PO ×3 (06:14→23:22)
[2020-04-19] MEDS: Nystatin Powder 15gm Bottle 1 APPLIC TOPICAL ×2 (06:16→17:07)
[2020-04-19] MEDS: Polyethylene Glycol 3350 17 GM PACKET PO (06:17)
[2020-04-19] MEDS: Enoxaparin 40 MG/0.4 ML Syringe SC (06:17)
[2020-04-19] MEDS: amLODIPine 5 MG Tablet PO (06:18)
[2020-04-19] MEDS: Menthol/Lanolin/Calamine/Znox 113 GM Tube 1 APPLIC TOPICAL ×2 (06:18→17:08)
[2020-04-19] MEDS: Gabapentin 100 MG Capsule PO ×3 (06:18→23:15)
[2020-04-19] MEDS: Senna/Docusate Sodium 1 Tablet 2 TABLET PO ×2 (06:18→17:10)
[2020-04-19] MEDS: Venlafaxine XR 150 MG Capsule PO (06:18)
[2020-04-19] MEDS: Lisinopril 20 MG Tablet PO (06:18)
[2020-04-19] MEDS: Benztropine 2 MG Tablet 1 MG PO ×2 (06:18→17:10)
[2020-04-19] MEDS: Folic Acid 1 MG Tablet PO (08:41)
--- NOTE | 2020-04-19 10:25 | NURSING ---
pt stated i lost my front tooth that was loose in the front but cant find it. this nurse looked and found it on the floor. put in sterile container gave to rn.
[2020-04-19 14:00] VITALS: PULSE 100; RESP 18; O2SAT 95
[2020-04-19 15:16] VITALS: BP 135/77; PULSE 87; RESP 18; TEMP 35.7; O2SAT 100
[2020-04-19] MEDS: Tamsulosin HCl 0.4 MG Capsule 0.8 MG PO (17:07)
[2020-04-19] MEDS: Acetaminophen 500 MG Tablet 1000 MG PO (17:13)
[2020-04-19] MEDS: QUEtiapine 100 MG Tablet 200 MG PO (23:16)
[2020-04-20 05:00] VITALS: BP 119/59; PULSE 79; RESP 18; TEMP 36.6; O2SAT 94
[2020-04-20] MEDS: Benztropine 2 MG Tablet 1 MG PO ×2 (05:35→17:14)
[2020-04-20] MEDS: Enoxaparin 40 MG/0.4 ML Syringe SC (05:35)
[2020-04-20] MEDS: Polyethylene Glycol 3350 17 GM PACKET PO (05:35)
[2020-04-20] MEDS: Senna/Docusate Sodium 1 Tablet 2 TABLET PO (05:35)
[2020-04-20] MEDS: Lisinopril 20 MG Tablet PO (05:35)
[2020-04-20] MEDS: amLODIPine 5 MG Tablet PO (05:35)
[2020-04-20] MEDS: Venlafaxine XR 150 MG Capsule PO (05:35)
[2020-04-20] MEDS: Gabapentin 100 MG Capsule PO ×3 (05:36→22:47)
[2020-04-20] MEDS: Menthol/Lanolin/Calamine/Znox 113 GM Tube 1 APPLIC TOPICAL ×2 (05:36→17:14)
[2020-04-20] MEDS: Nystatin Powder 15gm Bottle 1 APPLIC TOPICAL ×2 (05:36→17:16)
[2020-04-20 07:08] LABS: Absolute Lymphocyte Count 1.87 X10^3/uL (0.83-4.51); Absolute Neutrophil Count 3.8 X10^3/uL (2.0-7.7); Basophil# 0.02 X10^3/uL; Basophil% 0.3 % (0-1); Hematocrit 33.7 % (37-47); Hemoglobin 11.1 g/dL (12.0-15.0); Lymphocyte # 1.87 X10^3/ul (4.0); Mean Corp Hgb Conc 32.9 g/dL (32-36); Mean Corpuscular Hgb 29.1 pg (27.0-32.0); Mean Corpuscular Volume 88.2 fL (81-99); Mean Platelet Vol. 9.2 fl (6.2-12.0); Monocyte# 0.54 X10^3/uL; Monocyte% 8.7 % (0-10); NRBC Flagged by Analyzer 0 % (0-5); Neutrophil # 3.79 X10^3/uL (2.7-7.7); Neutrophil % 60.8 % (47-70); Platelet Count 317 K/mm3 (150-450); RBC Distribution Width CV 12.4 % (11.6-14.6); RBC Distribution Width SD 39.8 fl (35.1-43.9); Red Blood Count 3.82 M/mm3 (4.2-5.4); White Blood Count 6.2 K/mm3 (4.4-11.0)
[2020-04-20 07:27] LABS: Anion Gap 6 (5-15); BUN 10 mg/dL (7-18); BUN/Creat Ratio 18.8 RATIO (10-20); Calcium,Total 8.7 mg/dL (8.5-10.1); Chloride 100 mmol/L (98-107); Creatinine, Serum 0.53 mg/dL (0.55-1.02); EST Glomerular Filtration Rate 122 mL/min (>60); Est Glom Filt Rate - Afr Amer 148 mL/min (>60); Estimated Creatinine Clearance 95.22 ml/min; Glucose 84 mg/dL (74-106); Sodium Level 134 mmol/L (136-145)
[2020-04-20] MEDS: Folic Acid 1 MG Tablet PO (08:28)
[2020-04-20] MEDS: oxyCODONE 5 MG Tablet 10 MG PO ×2 (11:01→22:50)
[2020-04-20 15:41] VITALS: BP 115/63; PULSE 56; RESP 16; TEMP 36.5; O2SAT 98
[2020-04-20] MEDS: Tamsulosin HCl 0.4 MG Capsule 0.8 MG PO (17:14)
[2020-04-20 20:40] VITALS: PULSE 88; RESP 18; O2SAT 97
[2020-04-20] MEDS: QUEtiapine 100 MG Tablet 200 MG PO (22:47)
[2020-04-21 04:26] VITALS: BP 115/57; PULSE 82; RESP 16; TEMP 36.6; O2SAT 94
[2020-04-21] MEDS: Enoxaparin 40 MG/0.4 ML Syringe SC (05:42)
[2020-04-21] MEDS: amLODIPine 5 MG Tablet PO (05:42)
[2020-04-21] MEDS: Venlafaxine XR 150 MG Capsule PO (05:42)
[2020-04-21] MEDS: Polyethylene Glycol 3350 17 GM PACKET PO (05:42)
[2020-04-21] MEDS: Gabapentin 100 MG Capsule PO ×3 (05:42→21:39)
[2020-04-21] MEDS: Lisinopril 20 MG Tablet PO (05:42)
[2020-04-21] MEDS: Senna/Docusate Sodium 1 Tablet 2 TABLET PO ×2 (05:42→17:16)
[2020-04-21] MEDS: Benztropine 2 MG Tablet 1 MG PO ×2 (05:43→17:16)
[2020-04-21] MEDS: Menthol/Lanolin/Calamine/Znox 113 GM Tube 1 APPLIC TOPICAL ×2 (05:43→17:15)
[2020-04-21] MEDS: Nystatin Powder 15gm Bottle 1 APPLIC TOPICAL ×2 (05:44→17:15)
[2020-04-21] MEDS: Folic Acid 1 MG Tablet PO (08:06)
[2020-04-21 08:55] VITALS: PULSE 106; RESP 16; O2SAT 98
[2020-04-21] MEDS: oxyCODONE 5 MG Tablet 10 MG PO ×2 (13:38→21:39)
[2020-04-21 14:45] VITALS: BP 120/57; PULSE 83; RESP 16; TEMP 36.1; O2SAT 94
[2020-04-21] MEDS: Tamsulosin HCl 0.4 MG Capsule 0.8 MG PO (17:15)
[2020-04-21] MEDS: QUEtiapine 100 MG Tablet 200 MG PO (21:39)
[2020-04-22 02:41] VITALS: BP 123/57; PULSE 85; RESP 16; TEMP 36.6; O2SAT 96
[2020-04-22] MEDS: Enoxaparin 40 MG/0.4 ML Syringe SC (06:02)
[2020-04-22] MEDS: Venlafaxine XR 150 MG Capsule PO (06:03)
[2020-04-22] MEDS: Benztropine 2 MG Tablet 1 MG PO ×2 (06:03→17:31)
[2020-04-22] MEDS: Menthol/Lanolin/Calamine/Znox 113 GM Tube 1 APPLIC TOPICAL ×2 (06:03→17:33)
[2020-04-22] MEDS: amLODIPine 5 MG Tablet PO (06:03)
[2020-04-22] MEDS: Senna/Docusate Sodium 1 Tablet 2 TABLET PO ×2 (06:03→17:32)
[2020-04-22] MEDS: Polyethylene Glycol 3350 17 GM PACKET PO (06:03)
[2020-04-22] MEDS: Gabapentin 100 MG Capsule PO ×3 (06:03→23:00)
[2020-04-22] MEDS: Lisinopril 20 MG Tablet PO (06:03)
[2020-04-22] MEDS: Nystatin Powder 15gm Bottle 1 APPLIC TOPICAL ×2 (06:04→17:33)
[2020-04-22] MEDS: Folic Acid 1 MG Tablet PO (08:55)
[2020-04-22] MEDS: oxyCODONE 5 MG Tablet 10 MG PO ×3 (08:58→22:58)
[2020-04-22] MEDS: Acetaminophen 500 MG Tablet 1000 MG PO (11:46)
--- NOTE | 2020-04-22 11:58 | NURSING ---
UPDATED PT SISTER AND OTHER QUESTIONS REFEREED TO GALINDO,NETWORKING TECHNOLOGY INSTRUCTOR AND THERAPY.
--- NOTE | 2020-04-22 13:18 | CASEMGMT ---
Addendum entered by Cecy Roper 04/22/20 17:01: PASRR completed and no further review is needed. Spoke with sister to inform her [facility] has accepted pt. Addendum entered by Cecy Roper 04/22/20 15:48: Spoke with Alexa from [facility] and are able to accept pt. Alexa understands and has also explained to sister pt would come part B therapies, room and board private pay 04/26, pending outcome of appeal. Will complete PASRR. Will continue to follow. Original Note: Social Work Sister contacted requesting referral to [facility] but wants to ensure pt transfers skilled. Explained this worker does not make that determination. Medicare and the accepting facility will decide that. Received information from [employer] that sister filed an appeal #[id number]. Explained it was beneficial to appeal so it can be determined by a third constitution party if pt continues to qualify for Medicare skilled services or not. Sister expressed her frustration with pt being accepted to TCU if she was unable to complete her healing process in this unit ([facility]) and that this was a short-term unit. Emphasized with frustration but encouraged sister to look toward future as we cannot change this route. Sister thanked this worker for referrals and will await outcomes. Referral made to [facility]. Requested information faxed to [employer]rie. PEPPER aware. CONSTANZA Powell
[2020-04-22 14:36] VITALS: BP 117/68; PULSE 96; RESP 18; TEMP 36.4; O2SAT 96
--- NOTE | 2020-04-22 15:38 | PT ---
Spoke with pt's sister, Sachi. Sachi asking about pt's current level of assistance. Explained pt varies between min A to SBA for bed mobility. She is CGA for transfers and min A/CGA to ambulate 10 ft with FWW. Pt is able to ambulate 10 ft but then needs a rest break, and then can ambulate 10 ft again. Pt's sister then stated she is ambulating 20 ft. Again stated, No. She is walking 10 ft, needs a break, and then can walker another 10 ft with min A/CGA. Pt is very fatigued after ambulation and c/o 10/10 pain in LLE when standing and walking. Pt's sister expressing frustration on why pt cannot transfer to another facility as skilled. Again explained that therapy does not make that decision and that would be up to the insurance company. Pt's sister again stated she was frustrated and asked why pt came here versus going somewhere else in the first place. Again recommended pt's sister call [facility], as she said she was going to call them on of last week. Pt stated she will call [facility] today. Pt thanked this MACHINE MILKER and said she would call today.
[2020-04-22] MEDS: Tamsulosin HCl 0.4 MG Capsule 0.8 MG PO (17:31)
[2020-04-22] MEDS: QUEtiapine 100 MG Tablet 200 MG PO (23:00)
[2020-04-23] MEDS: traMADol 50 MG Tablet PO (02:00)
[2020-04-23 05:00] VITALS: BP 132/64; PULSE 93; RESP 18; TEMP 36.6; O2SAT 97
[2020-04-23] MEDS: Senna/Docusate Sodium 1 Tablet 2 TABLET PO ×2 (05:00→17:28)
[2020-04-23] MEDS: Lisinopril 20 MG Tablet PO (05:06)
[2020-04-23] MEDS: Benztropine 2 MG Tablet 1 MG PO ×2 (05:06→17:27)
[2020-04-23] MEDS: Venlafaxine XR 150 MG Capsule PO (05:06)
[2020-04-23] MEDS: amLODIPine 5 MG Tablet PO (05:07)
[2020-04-23] MEDS: oxyCODONE 5 MG Tablet 10 MG PO ×3 (05:07→22:13)
[2020-04-23] MEDS: Gabapentin 100 MG Capsule PO ×3 (05:07→22:15)
[2020-04-23] MEDS: Menthol/Lanolin/Calamine/Znox 113 GM Tube 1 APPLIC TOPICAL ×2 (05:08→17:25)
[2020-04-23] MEDS: Enoxaparin 40 MG/0.4 ML Syringe SC (05:08)
[2020-04-23] MEDS: Polyethylene Glycol 3350 17 GM PACKET PO (05:09)
[2020-04-23] MEDS: Nystatin Powder 15gm Bottle 1 APPLIC TOPICAL ×2 (05:09→17:28)
[2020-04-23] MEDS: Folic Acid 1 MG Tablet PO (08:10)
[2020-04-23] MEDS: Acetaminophen 500 MG Tablet 1000 MG PO (08:11)
[2020-04-23 10:00] VITALS: PULSE 91; RESP 18; O2SAT 98
--- NOTE | 2020-04-23 13:10 | CASEMGMT ---
Social Work Received call from [employer] that pt has lost appeal. Contacted sister and inquired if she would like pt to DC to [facility] 04/26 or if she has another plan. Sister stated she would like to file reconsideration. Explained to sister the reconsideration guidelines - they have 14 days to make determination, if pt remains in TCU 04/26 and beyond and does not win appeal, the pt would need to pay privately at $660/day. Sister indicated understanding and ended phone call to file reconsideration. SW to continue to follow. Cecy Roper, RETIREMENT SPECIALIST CLAY PREPARATION SUPERVISOR
[2020-04-23 14:14] VITALS: BP 95/58; PULSE 93; RESP 20; TEMP 36.5; O2SAT 95
[2020-04-23] MEDS: Tamsulosin HCl 0.4 MG Capsule 0.8 MG PO (17:26)
[2020-04-23] MEDS: QUEtiapine 100 MG Tablet 200 MG PO (22:15)
[2020-04-24] MEDS: oxyCODONE 5 MG Tablet 10 MG PO ×2 (03:35→15:05)
[2020-04-24 03:37] VITALS: BP 130/72; PULSE 99; RESP 18; TEMP 36.6; O2SAT 93
[2020-04-24] MEDS: Enoxaparin 40 MG/0.4 ML Syringe SC (05:03)
[2020-04-24] MEDS: Senna/Docusate Sodium 1 Tablet 2 TABLET PO (05:04)
[2020-04-24] MEDS: Venlafaxine XR 150 MG Capsule PO (05:04)
[2020-04-24] MEDS: amLODIPine 5 MG Tablet PO (05:04)
[2020-04-24] MEDS: Lisinopril 20 MG Tablet PO (05:04)
[2020-04-24] MEDS: Benztropine 2 MG Tablet 1 MG PO ×2 (05:04→17:09)
[2020-04-24] MEDS: Gabapentin 100 MG Capsule PO ×3 (05:04→21:44)
[2020-04-24] MEDS: Menthol/Lanolin/Calamine/Znox 113 GM Tube 1 APPLIC TOPICAL ×2 (05:05→17:10)
[2020-04-24] MEDS: Nystatin Powder 15gm Bottle 1 APPLIC TOPICAL ×2 (05:06→17:09)
[2020-04-24] MEDS: Folic Acid 1 MG Tablet PO (08:13)
--- NOTE | 2020-04-24 08:54 | NURSING ---
STAFF REPORTED PT NOTED TO HAVE BLOOD IN STOOLS OR VAGINALLY. PT C/O BURNING WITH URINATION, HGB NOTED TO BE TRENDING DOWN. DR MCCLOUD UPDATED THIS AM, NEW ORDER FOR [facility]A C/S, DC [facility], AND H&H ON WEDNESDAY 04/26
--- NOTE | 2020-04-24 10:15 | NURSING ---
Addendum entered by Jumnaa Whittington 04/24/20 12:55: Nursing staff then tried to obtain a clean catch specimen and pt unable to void at approx 10:15am. Original Note: This nurse updated pt on need for urine culture this morning pt refuses to allow straight cath and wants to try to do a clean catch specimen. This nurse explained to pt the risk of contamination when obtaining a clean catch specimen, pt stated she was ok with the risks even though the results may not be accurate and will not allow a straight cath specimen. Reported to charge nurse
--- NOTE | 2020-04-24 12:58 | NURSING ---
Pt had to use the restroom staff attempted to obtain a clean catch specimen but pt was also having a bm. Will attempt again later, pt still refusing straight cath.
[2020-04-24 14:01] VITALS: BP 115/63; PULSE 106; RESP 16; TEMP 36.2; O2SAT 90
--- NOTE | 2020-04-24 17:01 | CASEMGMT ---
Social Work Spoke with pt about DC plans after lost appeal. Pt stated she feels she still meets criteria to remain covered by Medicare in this unit. Explained sister mentioned filing reconsideration but have not received confirmation of that yet. Pt was unsure if she filed yet. Explained pt she does file, [employer] has 14 days to provide outcome and pt is required to pay $660/day if not overturned for the days she remains. Inquired if she has the funds to do that. She stated, I would have to get on a payment plan. Inquired if that is what she would like to do or plan to DC on 04/26. Pt stated she has to talk to her sister. Reminded pt this is her decision and she is capable of making it for herself, but understand conversing with sister. Pt would contact dtr and SW to follow up. Cecy Roper, CONSTANZA MOTA
[2020-04-24] MEDS: Tamsulosin HCl 0.4 MG Capsule 0.8 MG PO (17:08)
[2020-04-24 17:13] LABS: Bacteria 0 SEEN /hpf (None Seen); Mucous, Urine 0 SEEN /hpf (<or=2+); Red Blood Cells-Urine 0 SEEN /hpf (0-5); Squamous Epithelial Cells - UA 0 SEEN /hpf (5-10)
--- NOTE | 2020-04-24 17:14 | CASEMGMT ---
This RN CM contacted pt's sister Sachi Moya in follow-up to our discussion last week regarding appealing the pt's discontinuation of Medicare paid services and subsequent discharge plan. Pt's sister states she filed an appeal with [employer] and understands that she did not win this appeal. Pt's sister states she does not feel that the pt's underlying conditions including a previous CVA resulting in balance difficulties, previous back fx, bad shoulder, and psychiatric issues including depression are being considered in the overall determination since these factors will delay the patient's ability to be rehabilitated back to baseline. Pt asked about speaking to the patient advocate and states she does have the number. This RN CM encouraged Sachi to call this number regarding issues she has regarding medications and her sister's initial acceptance into TCU. Reviewed with pt's sister the process for reconsideration including up to 14 days for decision to be rendered and self-pay at a rate of $660/day starting Wednesday04/26/20 if the decision is not in her favor. Pt's sister states she feels she needs to advocate for her sister. She states she spoke with [facility] and they instructed her to call Jared at to file for the reconsideration. She is aware that she needed to have done that by noon today. She states she has attempted numerous times but no one answers the phone. Brie provided her with a fax number ( ). This RN CM attempted to contact Jared at the phone number provided. An automated message was received but once 1 was selected for [place] it rang for over 4 minutes without anyone picking up. This RN CM faxed a cover sheet to the above fax number asking for them to contact Sachi or provide this RN CM with an alternate phone number. This RN CM notified pt's sister of the above attempts to contact Jared. Will follow-up tomorrow regarding further communications with Jared. Ariane Lee RN CM
[2020-04-24 17:15] LABS: Color, Urine Yellow (Yellow); Glucose, Dipstick Normal (Normal); Ketone-Dipstick Negative (Negative); Leukocyte Esterase-Dipstick 500 /ul (Negative); Nitrite-Dipstick Negative (Negative); Occult Blood-Urine 150 /ul (Negative); Protein-Dipstick 100 mg/dl (Negative); Urine Bilirubin Dipstick Negative (Negative); Urine Clarity Turbid (Clear); Urine Urobilinogen Normal (Normal)
[2020-04-24 17:32] LABS: White Blood Cells >100 SEEN /hpf (0-5)
[2020-04-24] MEDS: Ciprofloxacin 500 MG Tablet PO (17:49)
[2020-04-24] MEDS: QUEtiapine 100 MG Tablet 200 MG PO (21:43)
[2020-04-24 21:47] VITALS: PULSE 90; RESP 18; O2SAT 97
[2020-04-25] MEDS: oxyCODONE 5 MG Tablet 10 MG PO ×4 (03:20→22:00)
[2020-04-25] MEDS: Polyethylene Glycol 3350 17 GM PACKET PO (03:22)
[2020-04-25] MEDS: Menthol/Lanolin/Calamine/Znox 113 GM Tube 1 APPLIC TOPICAL ×2 (03:29→17:14)
[2020-04-25 03:30] VITALS: BP 136/84; PULSE 92; RESP 18; TEMP 36.6; O2SAT 97
[2020-04-25] MEDS: Nystatin Powder 15gm Bottle 1 APPLIC TOPICAL ×2 (03:30→17:17)
[2020-04-25] MEDS: Lisinopril 20 MG Tablet PO (05:09)
[2020-04-25] MEDS: Gabapentin 100 MG Capsule PO ×3 (05:09→21:54)
[2020-04-25] MEDS: Benztropine 2 MG Tablet 1 MG PO ×2 (05:09→17:14)
[2020-04-25] MEDS: Senna/Docusate Sodium 1 Tablet 2 TABLET PO ×2 (05:10→17:15)
[2020-04-25] MEDS: amLODIPine 5 MG Tablet PO (05:10)
[2020-04-25] MEDS: Venlafaxine XR 150 MG Capsule PO (05:10)
[2020-04-25] MEDS: Ciprofloxacin 500 MG Tablet PO ×2 (06:59→17:13)
[2020-04-25] MEDS: Folic Acid 1 MG Tablet PO (07:59)
--- NOTE | 2020-04-25 10:13 | CASEMGMT ---
Call received from Angella at [facility] regarding the start of a second level appeal. Angella states the fax was received, they have contacted the pt's sister and the appeal has been started. She explained that their phones lines had been down so they have time stamped this as of the time the fax was sent and are not considering this to be a late filing. She states an outcome will be provided within 72 hours. Additional information can be faxed to [phone] with pt's name and MCR number on the fax cover sheet. Ariane Lee RN CM
[2020-04-25] MEDS: Acetaminophen 500 MG Tablet 1000 MG PO (10:28)
[2020-04-25 10:40] VITALS: PULSE 91; RESP 18; O2SAT 96
[2020-04-25 13:11] VITALS: BP 109/51; PULSE 82; RESP 18; TEMP 36.4; O2SAT 96
--- NOTE | 2020-04-25 13:24 | CASEMGMT ---
Social Work Faxed clinicals from 04/22 to present to [facility] for pt reconsideration. Will await outcome. Left message with admissions at [facility] of current status. CONSTANZA PowellW
--- NOTE | 2020-04-25 15:09 | NURSING ---
NO NEW UPDATES AT THIS TIME
[2020-04-25] MEDS: Tamsulosin HCl 0.4 MG Capsule 0.8 MG PO (17:13)
[2020-04-25] MEDS: QUEtiapine 100 MG Tablet 200 MG PO (21:54)
[2020-04-26] MEDS: Polyethylene Glycol 3350 17 GM PACKET PO (04:18)
[2020-04-26] MEDS: oxyCODONE 5 MG Tablet 10 MG PO ×3 (04:18→20:49)
[2020-04-26] MEDS: Benztropine 2 MG Tablet 1 MG PO ×2 (04:20→17:15)
[2020-04-26] MEDS: Gabapentin 100 MG Capsule PO ×3 (04:20→23:13)
[2020-04-26] MEDS: Senna/Docusate Sodium 1 Tablet 2 TABLET PO ×2 (04:21→17:14)
[2020-04-26] MEDS: Lisinopril 20 MG Tablet PO (04:21)
[2020-04-26] MEDS: amLODIPine 5 MG Tablet PO (04:21)
[2020-04-26] MEDS: Venlafaxine XR 150 MG Capsule PO (04:21)
[2020-04-26] MEDS: Menthol/Lanolin/Calamine/Znox 113 GM Tube 1 APPLIC TOPICAL ×2 (04:21→17:13)
[2020-04-26] MEDS: Nystatin Powder 15gm Bottle 1 APPLIC TOPICAL ×2 (04:22→17:14)
[2020-04-26] MEDS: Ciprofloxacin 500 MG Tablet PO ×2 (04:22→17:14)
[2020-04-26 04:25] VITALS: BP 139/76; PULSE 83; RESP 18; TEMP 36.7; O2SAT 95
[2020-04-26 06:07] LABS: Hematocrit 35.8 % (37-47); Hemoglobin 11.5 g/dL (12.0-15.0)
[2020-04-26] MEDS: Folic Acid 1 MG Tablet PO (08:08)
--- NOTE | 2020-04-26 08:46 | CASEMGMT ---
Social Work SW met w/pt, completed PHQ-9, pt scored a 9. Upon further discussion, pt does indicate experiencing symptoms of depression. SW offered to make an appointment for counseling, pt declined but did accept a list of counseling resources in the area. GAYLE Santoyo
[2020-04-26] MEDS: Baclofen 10 MG Tablet PO (13:15)
[2020-04-26 15:31] VITALS: BP 117/60; PULSE 78; RESP 16; TEMP 36.4; O2SAT 95
[2020-04-26] MEDS: Tamsulosin HCl 0.4 MG Capsule 0.8 MG PO (17:13)
[2020-04-26 23:00] VITALS: PULSE 92; O2SAT 96
[2020-04-26] MEDS: QUEtiapine 100 MG Tablet 200 MG PO (23:13)
[2020-04-27 02:05] VITALS: BP 112/76; PULSE 89; RESP 16; TEMP 36.3; O2SAT 95
[2020-04-27] MEDS: amLODIPine 5 MG Tablet PO (05:41)
[2020-04-27] MEDS: Gabapentin 100 MG Capsule PO ×3 (05:41→20:55)
[2020-04-27] MEDS: Polyethylene Glycol 3350 17 GM PACKET PO (05:41)
[2020-04-27] MEDS: Senna/Docusate Sodium 1 Tablet 2 TABLET PO (05:41)
[2020-04-27] MEDS: Benztropine 2 MG Tablet 1 MG PO ×2 (05:41→16:49)
[2020-04-27] MEDS: Lisinopril 20 MG Tablet PO (05:41)
[2020-04-27] MEDS: Ciprofloxacin 500 MG Tablet PO ×2 (05:42→16:48)
[2020-04-27] MEDS: Menthol/Lanolin/Calamine/Znox 113 GM Tube 1 APPLIC TOPICAL ×2 (05:42→16:49)
[2020-04-27] MEDS: Venlafaxine XR 150 MG Capsule PO (05:42)
[2020-04-27] MEDS: Nystatin Powder 15gm Bottle 1 APPLIC TOPICAL ×2 (05:43→16:48)
[2020-04-27] MEDS: Folic Acid 1 MG Tablet PO (07:40)
[2020-04-27 08:17] LABS: Absolute Lymphocyte Count 1.65 X10^3/uL (0.83-4.51); Absolute Neutrophil Count 2.9 X10^3/uL (2.0-7.7); Basophil# 0.02 X10^3/uL; Basophil% 0.4 % (0-1); Hematocrit 38.4 % (37-47); Hemoglobin 12.5 g/dL (12.0-15.0); Lymphocyte # 1.65 X10^3/ul (4.0); Lymphocyte % 32.5 % (19-41); Mean Corp Hgb Conc 32.6 g/dL (32-36); Mean Corpuscular Hgb 28.9 pg (27.0-32.0); Mean Corpuscular Volume 88.7 fL (81-99); Mean Platelet Vol. 9.2 fl (6.2-12.0); Monocyte# 0.53 X10^3/uL; Monocyte% 10.5 % (0-10); NRBC Flagged by Analyzer 0 % (0-5); Neutrophil # 2.86 X10^3/uL (2.7-7.7); Neutrophil % 56.4 % (47-70); Platelet Count 320 K/mm3 (150-450); RBC Distribution Width CV 12.5 % (11.6-14.6); RBC Distribution Width SD 41.4 fl (35.1-43.9); Red Blood Count 4.33 M/mm3 (4.2-5.4); White Blood Count 5.1 K/mm3 (4.4-11.0)
[2020-04-27 08:51] LABS: Anion Gap 7 (5-15); BUN 8 mg/dL (7-18); BUN/Creat Ratio 13.6 RATIO (10-20); Calcium,Total 9.2 mg/dL (8.5-10.1); Chloride 104 mmol/L (98-107); Creatinine, Serum 0.59 mg/dL (0.55-1.02); EST Glomerular Filtration Rate 109 mL/min (>60); Est Glom Filt Rate - Afr Amer 132 mL/min (>60); Estimated Creatinine Clearance 85.54 ml/min; Glucose 94 mg/dL (74-106); Potassium 4.1 mmol/L (3.5-5.1); Sodium Level 137 mmol/L (136-145)
[2020-04-27] MEDS: oxyCODONE 5 MG Tablet 10 MG PO ×2 (10:10→18:54)
[2020-04-27] MEDS: Acetaminophen 500 MG Tablet 1000 MG PO (11:37)
[2020-04-27 13:34] VITALS: BP 110/66; PULSE 101; RESP 18; TEMP 36.6; O2SAT 94
[2020-04-27] MEDS: Tamsulosin HCl 0.4 MG Capsule 0.8 MG PO (16:49)
[2020-04-27] MEDS: QUEtiapine 100 MG Tablet 200 MG PO (20:54)
[2020-04-28 05:00] VITALS: BP 127/70; PULSE 84; RESP 16; TEMP 36.6; O2SAT 97
[2020-04-28] MEDS: Nystatin Powder 15gm Bottle 1 APPLIC TOPICAL ×2 (06:19→17:24)
[2020-04-28] MEDS: Polyethylene Glycol 3350 17 GM PACKET PO (06:19)
[2020-04-28] MEDS: Senna/Docusate Sodium 1 Tablet 2 TABLET PO (06:20)
[2020-04-28] MEDS: Gabapentin 100 MG Capsule PO ×3 (06:20→20:31)
[2020-04-28] MEDS: Lisinopril 20 MG Tablet PO (06:20)
[2020-04-28] MEDS: Benztropine 2 MG Tablet 1 MG PO ×2 (06:20→17:24)
[2020-04-28] MEDS: Venlafaxine XR 150 MG Capsule PO (06:21)
[2020-04-28] MEDS: Ciprofloxacin 500 MG Tablet PO ×2 (06:21→17:24)
[2020-04-28] MEDS: amLODIPine 5 MG Tablet PO (06:21)
[2020-04-28] MEDS: Menthol/Lanolin/Calamine/Znox 113 GM Tube 1 APPLIC TOPICAL ×2 (06:23→17:24)
[2020-04-28] MEDS: Folic Acid 1 MG Tablet PO (08:05)
[2020-04-28] MEDS: oxyCODONE 5 MG Tablet 10 MG PO ×2 (08:05→13:45)
[2020-04-28 14:01] VITALS: BP 103/51; PULSE 86; RESP 16; TEMP 36.4; O2SAT 95
[2020-04-28] MEDS: Tamsulosin HCl 0.4 MG Capsule 0.8 MG PO (17:23)
[2020-04-28] MEDS: Acetaminophen 500 MG Tablet 1000 MG PO (20:31)
[2020-04-28] MEDS: QUEtiapine 100 MG Tablet 200 MG PO (20:31)
[2020-04-29 05:00] VITALS: BP 132/67; PULSE 90; RESP 18; TEMP 36.8; O2SAT 94
[2020-04-29] MEDS: Menthol/Lanolin/Calamine/Znox 113 GM Tube 1 APPLIC TOPICAL (05:59)
[2020-04-29] MEDS: Ciprofloxacin 500 MG Tablet PO (05:59)
[2020-04-29] MEDS: Benztropine 2 MG Tablet 1 MG PO (05:59)
[2020-04-29] MEDS: Senna/Docusate Sodium 1 Tablet 2 TABLET PO (06:00)
[2020-04-29] MEDS: Gabapentin 100 MG Capsule PO ×2 (06:00→12:59)
[2020-04-29] MEDS: amLODIPine 5 MG Tablet PO (06:00)
[2020-04-29] MEDS: Venlafaxine XR 150 MG Capsule PO (06:00)
[2020-04-29] MEDS: Lisinopril 20 MG Tablet PO (06:00)
[2020-04-29] MEDS: Polyethylene Glycol 3350 17 GM PACKET PO (06:01)
[2020-04-29] MEDS: Nystatin Powder 15gm Bottle 1 APPLIC TOPICAL (06:01)
--- NOTE | 2020-04-29 08:11 | CASEMGMT ---
Social Work Received outcome from Jared - agreeable with LCD 04/25, private pay days begin 04/26. Left message with sister with that information and inquiring for SW to assist in facilitating DC this date 04/29 or if pt would like to continue to remain in TCU and pay privately. Will await return phone call. CONSTANZA PowellW
[2020-04-29] MEDS: Folic Acid 1 MG Tablet PO (08:19)
[2020-04-29] MEDS: oxyCODONE 5 MG Tablet 10 MG PO ×2 (08:21→12:53)
[2020-04-29 10:00] VITALS: RESP 16
[2020-04-29] MEDS: Baclofen 10 MG Tablet PO (10:40)
--- NOTE | 2020-04-29 13:20 | CASEMGMT ---
Call received from pt's sister Sachi who states she is aware of [facility]'s determination with last covered day of 04/25. States she is agreeable to the patient being transferred to [facility] on this date. Informed her that the TCU SW will contact her with a transfer time. States she has spoken with [facility] today regarding a plan going forward for payment. Pt's sister remains with questions regarding the delay in the process by Jared due to their phones being down and the resultant payment for noncovered days. Referred her to [facility] and/or the patient advocate to get answers to these concerns. She states she will contact them. TCU [facility] Sam notified of conversation and agreement for transfer of the pt [facility]. Ariane Lee RN CM
--- NOTE | 2020-04-29 14:12 | CASEMGMT ---
Social Work Spoke with [facility] and they can accept pt this date. Spoke with pt whom is agreeable to transfer. [facility] notified. W/C transport scheduled through [facility] for 4 pm. DC information, GEORGETTE faxed to [facility]. Notified sister of transport time. Plan: DC to [facility] 04/29 CONSTANZA Powell
[2020-04-29 14:50] VITALS: BP 118/62; PULSE 60; RESP 16; TEMP 36.2; O2SAT 94
== END 2020-04-29 16:00 | disposition intermediate care facility (04) | DRG 560 ==
PROVIDERS: Internal Medicine; Admitting Provider Family Medicine Geriatric Medicine; Visit Provider Family Medicine Geriatric Medicine
DX: S72.002D Fracture of unspecified part of neck of left femur, subsequent encounter for closed fracture with routine healing (principal); E87.1 Hypo-osmolality and hyponatremia; N39.0 Urinary tract infection, site not specified; L03.116 Cellulitis of left lower limb; W19.XXXD Unspecified fall, subsequent encounter; I10 Essential (primary) hypertension; F25.9 Schizoaffective disorder, unspecified; F32.9 Major depressive disorder, single episode, unspecified; F41.9 Anxiety disorder, unspecified; S32.9XXD Fracture of unspecified parts of lumbosacral spine and pelvis, subsequent encounter for fracture with routine healing; F17.210 Nicotine dependence, cigarettes, uncomplicated; G62.9 Polyneuropathy, unspecified; Z23 Encounter for immunization; B96.20 Unspecified Escherichia coli [E. coli] as the cause of diseases classified elsewhere
CPT/HCPCS: 36415; 71045; 80048; 81001; 83735; 85014; 85018; 85025; 87077; 87086; 87088; 87186; 87426; 87635; 97110; 97116; 97162; 97165; 97530; 97535; 97802; G0008; J7030; J7050; 90686; A4216; U0002; U0003

== ENCOUNTER → 2020-04-17 14:53 | Outpatient (CLI) | payer MEDICARE, BC, SELFPAY ==
[2020-03-29 14:59] VITALS: BMI 25.2
--- NOTE | 2020-04-17 15:00 | CT_ITS ---
HISTORY: CHANGE IN MENTAL STATUS TECHNIQUE: CT angiogram of the brain was performed without and with IV contrast. CT angiogram images of the neck were obtained with IV contrast. 3D reconstructions were reviewed to aid in vascular evaluation. NASCET criteria using the distal internal carotid arteries were used for evaluation of stenoses. A radiation dose optimization technique was used for this scan. IV Contrast dosage and agent: 100 ml [id number] Number of images including paperwork: 1211 COMPARISON: None CTA head: FINDINGS: BRAIN: No acute hemorrhage or mass. No definite acute infarct; MRI more sensitive. White matter hypodensity is nonspecific but most commonly seen with chronic ischemic changes. Generalized atrophy. Mild right anterior temporal encephalomalacia. Right basal ganglia lacunar infarct. VENTRICULAR SYSTEM: No hydrocephalus. PARANASAL SINUSES AND MASTOIDS: No air-fluid level in the imaged extent. Mild mucosal thickening noted. ORBITS: Unremarkable imaged extent. SKELETON AND SOFT TISSUES: Right sided craniotomy changes. INTERNAL CAROTID ARTERIES: No significant stenosis of the intracranial segments. ANTERIOR CEREBRAL ARTERIES: No significant stenosis of the visualized segments. ANTERIOR COMMUNICATING ARTERY: Present. MIDDLE CEREBRAL ARTERIES: No significant stenosis of the visualized segments. Aneurysm clip noted on the right. VERTEBRAL ARTERIES: No significant stenosis of the intradural/visualized segments. BASILAR ARTERY: No significant stenosis. 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 POSTERIOR CEREBRAL ARTERIES: No significant stenosis of the visualized segments. POSTERIOR COMMUNICATING ARTERIES: Present. IMPRESSION: 1. No acute vascular abnormality of the head. 2. 8 mm basilar tip aneurysm. CTA neck: FINDINGS: AORTIC ARCH AND BRANCHES: No dissection. Vascular tortuosity. RIGHT CAROTID ARTERIES: No occlusion, significant stenosis or dissection. Mild atherosclerotic plaque. LEFT CAROTID ARTERIES: Atherosclerotic plaque of the proximal left internal carotid artery with approximate 50% stenosis. RIGHT VERTEBRAL ARTERY: No occlusion, significant stenosis or dissection. LEFT VERTEBRAL ARTERY: No occlusion, significant stenosis or dissection. Dominant. NECK SOFT TISSUES: Unremarkable. LUNG APICES: Mild emphysema. BONES: Degenerative changes. T6 compression fracture with moderate loss of height. CT/CTA Head AND Neck W/ Contrast IMPRESSION: Approximate 50% stenosis of the proximal left internal carotid artery. Individualized dose optimization techniques were used for this CT. at 0046 Reported and signed by: Stephy Reddy MD Electronically Signed: Stephy Reddy MD at 0:46 EST Tel , Service support ,
== END ==
PROVIDERS: Referring Provider Family Medicine Geriatric Medicine; Visit Provider Family Medicine Geriatric Medicine
DX: R41.82 Altered mental status, unspecified (principal); I65.22 Occlusion and stenosis of left carotid artery
CPT/HCPCS: 70496; 70498